=== PATIENT | male | born 1995 | race American Indian/Alaskan Native ===

== ENCOUNTER 2016-05-29 20:45 | Emergency (ER) | payer SELFPAY ==
--- NOTE | 2016-05-29 23:04 | Emergency Department Report ---
ED Recheck HPI - General Chief Complaint: Recheck/Abnormal Lab/Rx Stated Complaint: ASTHMA/RT ARM LAC Time Seen by Provider: 05/29/16 23:04 Source: patient Mode of arrival: Ambulatory Limitations: No Limitations - History of Present Illness Initial Comments: Patient here reported that he has cough and feels like he doesn't have asthma attack and these been out of his asthma medication. Patient has a history of schizophrenia and bipolar and he is not having any mental health problems at this time. Denies any suicidal or homicidal ideation. He said he is just here to get is medication filled. Patient has a wound that is healed and keloid to his right forearm and he came in with a Band-Aid to site. It was mentioned in triage nurse noted that patient has superficial laceration to right forearm but he was wearing a Band-Aid because he said it looks ugly. He denies any pain. Denies any fever or chills. Complaint: medication refill request Returns Today for: request for prescription Symptoms Since Prior Visit: no new symptoms Context: ran out of medication Associated Symptoms: denies: fever, chills, chest pain, shortness of breath, rash, malaise, nasuea, abdominal pain Treatments Prior to Arrival: other (none) - Related Data Previous Rx's Medication Instructions Recorded Last Taken Type ALBUTEROL Inhaler [ProAir HFA 2 puff IH QID PRN #1 inhalation 05/29/16 Unknown Rx Inhaler] Allergies Allergy/AdvReac Type Severity Reaction Status Date / Time No Known Allergies Allergy Verified 10/20/15 21:11 ED Review of Systems ROS: Stated complaint: ASTHMA/RT ARM LAC Other details as noted in HPI Comment: All other systems reviewed and negative Constitutional: denies: chills, fever Eyes: denies: eye pain, vision change ENT: denies: ear pain, throat pain, congestion Respiratory: cough. denies: orthopnea, shortness of breath, SOB with exertion, SOB at rest, stridor, wheezing Cardiovascular: denies: chest pain, palpitations, edema, syncope Musculoskeletal: denies: back pain, arthralgia Neurological: denies: headache, weakness, numbness, paresthesias, confusion, abnormal gait, vertigo Psychiatric: denies: anxiety, depression, auditory hallucinations, visual hallucinations, homicidal thoughts, suicidal thoughts ED Past Medical Hx - Past Medical History Previous Medical History?: Yes Hx Psychiatric Treatment: Yes (Bipolar Type II, Schizophrenia) - Surgical History Past Surgical History?: No - Family History Family history: hypertension - Social History Smoking Status: Never Smoker Substance Use Type: None - Medications Home Medications: Home Medications Medication Instructions Recorded Confirmed Last Taken Type ALBUTEROL Inhaler [ProAir HFA 2 puff IH QID PRN #1 inhalation 05/29/16 Unknown Rx Inhaler] ED Physical Exam - General Limitations: No Limitations General appearance: alert, in no apparent distress - Head Head exam: Present: atraumatic, normocephalic, normal inspection - Eye Eye exam: Present: normal appearance, PERRL, EOMI Pupils: Present: normal accommodation - ENT ENT exam: Present: normal exam, normal orophraynx, mucous membranes moist, TM's normal bilaterally, normal external ear exam - Neck Neck exam: Present: normal inspection, full ROM. Absent: tenderness, meningismus, lymphadenopathy - Respiratory Respiratory exam: Present: normal lung sounds bilaterally - Cardiovascular Cardiovascular Exam: Present: regular rate, normal rhythm, normal heart sounds - Extremities Exam Extremities exam: Present: normal inspection, full ROM, normal capillary refill. Absent: tenderness, pedal edema - Neurological Exam Neurological exam: Present: alert, oriented X3, normal gait - Psychiatric Psychiatric exam: Present: normal affect, normal mood. Absent: depressed, anxious, homicidal ideation, suicidal ideation - Skin Skin exam: Present: warm, dry, intact, normal color, other (scar to Left forearm that is keloid). Absent: rash ED Course Vital Signs 05/29/16 21:19 Temperature 97.5 F L Pulse Rate 100 H Respiratory 20 Rate Blood Pressure 129/68 O2 Sat by Pulse 99 Oximetry - Reevaluation(s) Reevaluation #1: 05/29/16 23:24 Stable throughout ED course ED Recheck MDM - Differential Diagnosis Prescription Refill(s) - Medical Decision Making ED course: here for refills on his albuterol. He is asymptomatic. I discussed the patient that I'll refill his medication times one. He will need to call and schedule an appointment with his primary care physician which she said he does not have one. I will refer patient to [facility]. Discharged home with prescription for albuterol inhaler. Critical care attestation.: If time is entered above; I have spent that time in minutes in the direct care of this critically ill patient, excluding procedure time. ED Disposition Clinical Impression: Encounter for medication refill Disposition: DISCHARGED TO HOME OR SELFCARE Is pt being admited?: No Does the pt Need Aspirin: No Condition: Stable Instructions: Asthma (ED) Prescriptions: ALBUTEROL Inhaler [ProAir HFA Inhaler] 2 puff IH QID PRN #1 inhalation PRN Reason: Shortness Of Breath Referrals: [facility] [Outside] - 3-5 Days Forms: Work/School Release Form(ED)
[2016-05-30 03:01] VITALS: BP 122/74
== END 2016-05-30 00:30 | disposition home or self-care (01) ==
LOC: ED 20:45
DX: Z76.0 Encounter for issue of repeat prescription (principal); F31.81 Bipolar II disorder; F20.9 Schizophrenia, unspecified
CPT/HCPCS: 99281

== ENCOUNTER 2016-07-02 20:49 | Emergency (ER) | payer OTHER ==
[2016-07-02 21:37] LABS: Urine Drugs of Abuse Note Disclamer
[2016-07-02 21:54] LABS: Bilirubin,Urine NEG (Negative); Blood,Urine NEG (Negative); Ketones,Urine NEG (Negative); Leukocyte Esterase,Urine NEG (Negative); Nitrite,Urine NEG (Negative); Protein,Urine <15 mg/dL mg/dL (Negative); Urobilinogen,Urine < 2.0 mg/dL (<2.0)
[2016-07-02 21:58] LABS: WBC,Urine < 1.0 /HPF (0.0-6.0)
[2016-07-02 22:28] LABS: Basophils % (Auto) 0.8 % (0.0-1.8); Eosinophils % (Auto) 1.6 % (0.0-4.3); Hematocrit 43.2 % (35.5-45.6); Hemoglobin 13.7 gm/dl (11.8-15.2); Mean Corpuscular HGB Conc 32 % (32-34); Mean Corpuscular Hemoglobin 27 pg (28-32); Mean Corpuscular Volume 86 fl (84-94); Platelet Count 173 K/mm3 (140-440); Red Blood Count 5.04 M/mm3 (3.65-5.03); Red Cell Distribution Width 13.6 % (13.2-15.2); White Blood Count 7.8 K/mm3 (4.5-11.0)
--- NOTE | 2016-07-02 22:34 | Emergency Department Report ---
ED General Adult HPI - General Chief complaint: Overdose Stated complaint: SUICIDE ATTEMPT Time Seen by Provider: 07/02/16 21:31 Source: patient, EMS (ems notes not available at time of chart dictation. Verbal report received from EMS.), RN notes reviewed Mode of arrival: Stretcher Limitations: No Limitations - History of Present Illness Initial comments: This is a 20-year-old male. He is previously unknown to me. May have a history of psychiatric disease/schizoaffective. Brought to the hospital by EMS for intentional overdose. As per verbal report from EMS, the patient took 45 tablets of Cogentin (2 mg), and 45 tablets of Haldol (5 mg), approximately 1 hour prior to arrival. Denies coingestions. Patient is suicidal. Will not state why. Denies access to guns or firearms. Denies headache, neck pain, chest pain, abdominal pain. -: Sudden, hour(s) Severity scale (0 -10): 0 Consistency: constant Improves with: none Worsens with: none Associated Symptoms: malaise. denies: chest pain - Related Data Home Medications Medication Instructions Recorded Confirmed Last Taken Benztropine 2 mg PO DAILY 07/03/16 07/03/16 Unknown Haldol 15 mg PO HS 07/03/16 07/03/16 Unknown Previous Rx's Medication Instructions Recorded Last Taken Type ALBUTEROL Inhaler [ProAir HFA 2 puff IH QID PRN #1 inhalation 05/29/16 Unknown Rx Inhaler] Allergies Allergy/AdvReac Type Severity Reaction Status Date / Time No Known Allergies Allergy Verified 10/20/15 21:11 ED Review of Systems ROS: Stated complaint: SUICIDE ATTEMPT Other details as noted in HPI Constitutional: see HPI Eyes: as per HPI ENT: as per HPI Respiratory: see HPI Cardiovascular: as per HPI Endocrine: see HPI Gastrointestinal: as per HPI Genitourinary: as per HPI Musculoskeletal: as per HPI Skin: as per HPI Neurological: as per HPI Psychiatric: as per HPI Hematological/Lymphatic: as per HPI ED Past Medical Hx - Past Medical History Hx Psychiatric Treatment: Yes (Bipolar Type II, Schizophrenia) - Surgical History Past Surgical History?: No - Social History Smoking Status: Never Smoker Substance Use Type: Marijuana - Medications Home Medications: Home Medications Medication Instructions Recorded Confirmed Last Taken Type ALBUTEROL Inhaler [ProAir HFA 2 puff IH QID PRN #1 inhalation 05/29/16 07/03/16 Unknown Rx Inhaler] Benztropine 2 mg PO DAILY 07/03/16 07/03/16 Unknown History Haldol 15 mg PO HS 07/03/16 07/03/16 Unknown History ED Physical Exam - General Limitations: No Limitations General appearance: alert, in no apparent distress - Head Head exam: Present: atraumatic, normocephalic - Eye Eye exam: Present: normal appearance, PERRL, EOMI. Absent: nystagmus - ENT ENT exam: Present: normal exam, normal orophraynx, mucous membranes moist, normal external ear exam - Neck Neck exam: Present: normal inspection, full ROM. Absent: tenderness, meningismus - Respiratory Respiratory exam: Present: normal lung sounds bilaterally. Absent: respiratory distress, wheezes, rales, rhonchi, stridor, chest wall tenderness - Cardiovascular Cardiovascular Exam: Present: regular rate, normal rhythm, normal heart sounds. Absent: bradycardia, tachycardia, irregular rhythm, systolic murmur, diastolic murmur, rubs, gallop - GI/Abdominal GI/Abdominal exam: Present: soft, normal bowel sounds. Absent: distended, tenderness, guarding, rebound, rigid, pulsatile mass - Rectal Rectal exam: Present: deferred - Extremities Exam Extremities exam: Present: normal inspection, full ROM, normal capillary refill. Absent: tenderness, pedal edema, joint swelling, calf tenderness - Back Exam Back exam: Present: normal inspection, full ROM. Absent: tenderness, CVA tenderness (R), CVA tenderness (L), muscle spasm, paraspinal tenderness, vertebral tenderness - Neurological Exam Neurological exam: Present: alert, oriented X3, other (Extraocular movements intact. Tongue midline. No facial droop. Facial sensation intact to light touch in the V1, V2, V3 distribution bilaterally. 5 and 5 strength in 4 extremities.. Sensation is intact to light touch in 4 extremities.). Absent: motor sensory deficit - Psychiatric Psychiatric exam: Present: flat affect, suicidal ideation - Skin Skin exam: Present: warm, dry, intact, normal color. Absent: rash ED Course Vital Signs 07/02/16 07/02/16 07/02/16 21:04 22:00 23:00 Temperature 98 F Pulse Rate 97 H 77 80 Respiratory 16 16 16 Rate Blood Pressure 125/81 Blood Pressure 125/81 119/77 124/67 [Left] O2 Sat by Pulse 100 100 100 Oximetry 07/03/16 00:05 Temperature Pulse Rate Respiratory 16 Rate Blood Pressure Blood Pressure [Left] O2 Sat by Pulse 100 Oximetry - Reevaluation(s) Reevaluation #1: 07/02/16 22:42 Differential diagnosis: Polysubstance overdose, suicidality, mood disorder Assessment and plan: 20-year-old male status post overdose and suicide attempt. He is protecting his airway. Presented more than 60 minutes after ingestion. We will withhold charcoal at this time. Has a GCS of 15, with an NIH score of 0. Protecting his airway. 1013 form is filled out. Basic laboratory studies are sent. EKG is reviewed. Case is discussed with the [place] [facility]. They recommended 6-8 hours of observation, maintaining a potassium greater than 4, and a magnesium of greater than 2, and EKG monitoring. Reevaluation #2: 07/03/16 05:07 patient has been observed in the ER for a prolonged period of time. Multiple EKGs have been essentially unremarkable. His most recent EKG show shortening of his QTC. At this point in time, I see no immediate medical contraindication to psychiatric admission/evaluation/placement. 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 ED Medical Decision Making - Lab Data Result diagrams: 07/02/16 22:09 07/02/16 22:09 Vital Signs 07/02/16 21:04 Temperature 98 F Pulse Rate 97 H Respiratory 16 Rate Blood Pressure 125/81 Blood Pressure 125/81 [Left] O2 Sat by Pulse 100 Oximetry Lab Results 07/02/16 07/02/16 Range/Units 21:30 22:09 WBC 7.8 (4.5-11.0) K/mm3 RBC 5.04 H (3.65-5.03) M/mm3 Hgb 13.7 (11.8-15.2) gm/dl Hct 43.2 (35.5-45.6) % MCV 86 (84-94) fl MCH 27 L (28-32) pg MCHC 32 (32-34) % RDW 13.6 (13.2-15.2) % Plt Count 173 (140-440) K/mm3 Lymph % (Auto) 21.4 (13.4-35.0) % [place] % (Auto) 7.2 (0.0-7.3) % Eos % (Auto) 1.6 (0.0-4.3) % Baso % (Auto) 0.8 (0.0-1.8) % Lymph # 1.7 (1.2-5.4) K/mm3 [place] # 0.6 (0.0-0.8) K/mm3 Eos # 0.1 (0.0-0.4) K/mm3 Baso # 0.1 (0.0-0.1) K/mm3 Seg Neutrophils % 69.0 (40.0-70.0) % Seg Neutrophils # 5.4 (1.8-7.7) K/mm3 Urine Color Straw (Yellow) Urine Turbidity Clear (Clear) Urine pH 8.0 H (5.0-7.0) Ur Specific [place] 1.006 (1.003-1.030) Urine Protein <15 mg/dl (Negative) mg/dL Urine Glucose (UA) Neg (Negative) mg/dL Urine Ketones Neg (Negative) mg/dL Urine Blood Neg (Negative) Urine Nitrite Neg (Negative) Urine Bilirubin Neg (Negative) Urine Urobilinogen < 2.0 (<2.0) mg/dL Ur Leukocyte Esterase Neg (Negative) Urine WBC (Auto) < 1.0 (0.0-6.0) /HPF Urine RBC (Auto) 1.0 (0.0-6.0) /HPF - EKG Data 07/02/16 22:43 normal sinus, 93 beats per minute, normal axis, QTC 462 ms, not morphologically consistent with STEMI, appears grossly unchanged from prior EKG from April 2016. EKG #3 demonstrates normal sinus, 68 bpm, QTC 450 ms, early repolarization, no chest pain, not morphologically consistent with STEMI. EKG #2 demonstrated sinus, 76 bpm, QTC 459 ms, benign early repolarization, no chest pain, not morphologically consistent with STEMI 07/03/16 05:08 Critical care attestation.: If time is entered above; I have spent that time in minutes in the direct care of this critically ill patient, excluding procedure time. ED Disposition Clinical Impression: Schizoaffective disorder, Mood disorder, Overdose Disposition: DC/TX PSY HOSP/PSY UNIT Is pt being admited?: No Does the pt Need Aspirin: No Condition: Good Referrals: PRIMARY CARE, [Primary Care Provider] - 3-5 Days
[2016-07-03 00:35] LABS: Anion Gap 21 mmol/L; BUN/Creatinine Ratio 8.75; Blood Urea Nitrogen 7 mg/dL (9-20); Calcium 9.3 mg/dL (8.4-10.2); Carbon Dioxide 25 mmol/L (22-30); Chloride 100.4 mmol/L (98-107); Glucose 106 mg/dL (75-100); Potassium 3.9 mmol/L (3.6-5.0); Sodium 142 mmol/L (137-145)
[2016-07-03] MEDS: HALDOL PO SCH (02:10)
[2016-07-03] MEDS ORDERED: PROAIR IH PRN (05:08)
[2016-07-03] MEDS ORDERED: ATIVAN IM PRN (05:09)
[2016-07-03] MEDS ORDERED: BENZTROPINE 2 MG PO SCH (10:00)
[2016-07-03] MEDS: COGENTIN PO SCH (11:10)
[2016-07-03] MEDS ORDERED: HALOPERIDOL 15 MG PO SCH (22:00)
[2016-07-04] MEDS: COGENTIN PO SCH (10:03)
--- NOTE | 2016-07-04 19:20 | Event Note ---
Date: 07/04/16 Labs and vital signs reviewed. Patient seen, in no acute distress, resting quietly without complaints. Awaiting placement
[2016-07-04] MEDS: HALDOL PO SCH (21:55)
--- NOTE | 2016-07-05 05:51 | Admit Criteria Form ---
Admission Criteria Documentation: DRUG INGESTION OR OVERDOSE Clinical Indications for Admission to Inpatient Care ( Place 'X' for any and all applicable criteria): Admission is indicated for severe toxicity as indicated by ANY ONE of the following(1)(2)(3)(4)(5)(6): [X ]I. Inpatient admission required rather than observation care (Also use Drug Ingestion or Overdose: Observation Care guideline as appropriate) because of ANY ONE of the following: [ ]a) Altered mental status that is severe or persistent [ ]b) Clinical finding (eg, metabolic acidosis, hypoglycemia, bradycardia) that is severe or persistent [ ]c) Toxic drug level that is persistent [X ]d) Psychiatric risk status not acceptable for outpatient management [ ]e) Continuous intravenous infusion of anticoagulation, platelet inhibitor, vasoactive, or antiarrhythmic medication (15)(16) [X ]f) Other condition, treatment or monitoring requiring inpatient admission [ ]II. Respiratory abnormalities [ ]III. Specific finding indicating severe and likely prolonged drug toxicity [ ]IV. Hemodynamic instability [ ]V. Dangerous arrhythmia [ ]. Hypertension requiring inpatient treatment Extended stay beyond goal length of stay may be needed for (4): [ ]a) Neurologic or respiratory compromise [ ]b) Hemodynamic instability [ ]c) Persistent toxic drug levels (25) [ ]d) Severe drug toxicities or complications [ ]e) Ongoing antidote treatment (eg, acetaminophen overdose)(5) [ ]f) Older patients(65 years or older) The original [employer] content created by [employer] has been revised. The portions of the content which have been revised are identified through the use of italic text or in bold, and [facility] has neither reviewed nor approved the modified material. All other unmodified content is copyright [facility]. Please see references footnoted in the original [employer] edition 2016
[2016-07-05] MEDS: COGENTIN PO SCH (09:50)
--- NOTE | 2016-07-05 20:42 | Event Note ---
Date: 07/05/16 Labs and vital signs reviewed. Patient seen, in no acute distress, resting quietly without complaints. Awaiting placement
[2016-07-05] MEDS: HALDOL PO SCH (22:25)
[2016-07-06] MEDS: COGENTIN PO SCH (10:11)
--- NOTE | 2016-07-06 17:41 | Consultation ---
History of Present Illness - Reason for Consult Consult date: 07/06/16 Reason for consult: management of psychiatric condition while awaiting placement - Chief Complaint Chief complaint: I just want to go home - History of Present Psychiatric Illness This is a 20 year old domiciled male with a PPH of Schizophrenia v Bipolar Disorder with Psychosis who now presents after an intentional overdose on risperidone and cogentin. Poison control was called and he had serial EKGs to monitor his QTc with attention of K and Mg levels. OTc on serial EKGs were as follows: 462ms, 459ms, and 450ms. With a down trending QTc and normal K and Mg levels, he was medically cleared after a prolonged observation period. Upon my examination, he was ambulatory and openly requested to be discharged form the ER. Upon discussion, he noted a significant and prolonged history of a depressive syndrome that had recently culminated into command auditory hallucinations to end his life. He noted becoming progressively despondent due to various life stressors and periodic isolation from society due to his symptoms. Consequently, he developed a delusional schema and his psychosis worsened. Although, he initially requested to be discharged he eventually agreed to engage in treatment if we agreed to modify his medication regimen because it has not been effective in helping him to manage his symptoms. During my assessment, he noted periods that resembled manic or hypomanic like which were followed by a depressive episode. Medications and Allergies Allergies Allergy/AdvReac Type Severity Reaction Status Date / Time No Known Allergies Allergy Verified 10/20/15 21:11 Home Medications Medication Instructions Recorded Confirmed Last Taken Type ALBUTEROL Inhaler [ProAir HFA 2 puff IH QID PRN #1 inhalation 05/29/16 07/03/16 Unknown Rx Inhaler] Benztropine 2 mg PO DAILY 07/03/16 07/03/16 Unknown History Haldol 15 mg PO HS 07/03/16 07/03/16 Unknown History Active Meds: Active Medications Albuterol (Proair) 2 puff IH QID PRN PRN Reason: Shortness Of Breath Benztropine Mesylate (Cogentin) 2 mg PO DAILY [facility] Last Admin: 07/06/16 10:11 Dose: 2 mg Haloperidol (Haldol) 15 mg PO QHS [facility] Last Admin: 07/05/16 22:25 Dose: 15 mg Lorazepam (Ativan) 2 mg IM Q4HR PRN PRN Reason: Agitation Mental Status Exam - Vital signs Last Vital Signs Temp 97.6 F 07/06/16 17:05 Pulse 74 07/06/16 17:05 Resp 16 07/06/16 17:05 BP 113/70 07/06/16 17:05 Pulse Ox 98 07/06/16 17:05 - Exam Orientation: time, place, person Affect: depressed, anxious Mood: hopeless, sad, anxious Thought content: delusions, obsessions, paranoia, somatic Perceptions: command, hallucinations Speech: slow Concentration: distractible Motor activity: normal Level of consciousness: alert Memory: Recent Intact, Remote Intact Sleep Symptoms: Hypersomnia Interaction: guarded Results Result Diagrams: 07/02/16 22:09 07/02/16 22:09 All other labs normal. Assessment and Plan Assessment and plan: This is a 20 year old domiciled male with symptoms of psychosis with a differential diagnosis of schizophrenia v bipolar disorder with psychosis who has not responded well to the current medication regimen. Additionally, he has not responded well to zyprexa or risperdione. He has agreed to continue treatment if we modify his medication regimen. Given the severity of his recent overdose, we recommend continuing to place this patient into an emergency receiving facility to address his persistent paranoid delusions and depressive syndrome. At this time, I recommend discontinuing the haloperidol. I also recommend completing a loading depakote dose and adding a standing dose of depakote along with seroquel. We appreciate the opportunity to care for this patient. We will continue to follow and to help manage this patient while he is pending placement.
--- NOTE | 2016-07-07 14:47 | Event Note ---
Date: 07/07/16 Psychiatric consultation reviewed and appreciated. Vital signs reviewed and appreciated. Patient awaiting psychiatric placement at this time. Vital Signs 07/02/16 07/02/16 07/02/16 21:04 22:00 23:00 Temperature 98 F Pulse Rate 97 H 77 80 Respiratory 16 16 16 Rate Blood Pressure 125/81 Blood Pressure 125/81 119/77 124/67 [Left] O2 Sat by Pulse 100 100 100 Oximetry 07/03/16 07/03/16 07/03/16 00:05 00:10 01:00 Temperature Pulse Rate 76 75 Respiratory 16 12 14 Rate Blood Pressure 121/61 Blood Pressure [Left] O2 Sat by Pulse 100 97 97 Oximetry 07/03/16 07/03/16 07/03/16 02:00 03:00 04:00 Temperature Pulse Rate 80 69 69 Respiratory 14 9 L 10 L Rate Blood Pressure 118/52 121/61 121/61 Blood Pressure [Left] O2 Sat by Pulse 98 97 98 Oximetry 07/03/16 07/03/16 07/03/16 05:00 06:00 07:00 Temperature Pulse Rate 72 81 72 Respiratory 12 10 L 11 L Rate Blood Pressure 121/61 121/61 121/61 Blood Pressure [Left] O2 Sat by Pulse 96 99 97 Oximetry 07/03/16 07/03/16 07/04/16 10:00 22:00 04:11 Temperature 98.4 F 98.6 F Pulse Rate 93 H 90 Respiratory 18 18 12 Rate Blood Pressure Blood Pressure 125/67 130/76 [Left] O2 Sat by Pulse 97 98 Oximetry 07/04/16 07/04/16 07/04/16 04:13 09:30 11:05 Temperature 98.7 F 97.5 F L Pulse Rate 78 76 Respiratory 16 16 Rate Blood Pressure Blood Pressure 118/68 [Left] O2 Sat by Pulse 100 100 Oximetry 07/04/16 07/05/16 07/05/16 19:34 07:34 20:46 Temperature 99.2 F 97.8 F 97.1 F L Pulse Rate 99 H 91 H 73 Respiratory 16 18 20 Rate Blood Pressure Blood Pressure 134/77 118/78 112/67 [Left] O2 Sat by Pulse 98 99 99 Oximetry 07/06/16 07/06/16 07/06/16 04:34 10:00 11:00 Temperature 98.3 F Pulse Rate 92 H Respiratory 20 18 18 Rate Blood Pressure Blood Pressure 140/80 [Left] O2 Sat by Pulse 99 99 98 Oximetry 07/06/16 07/07/16 17:05 07:34 Temperature 97.6 F 98.3 F Pulse Rate 74 79 Respiratory 16 18 Rate Blood Pressure Blood Pressure 113/70 118/74 [Left] O2 Sat by Pulse 98 99 Oximetry
--- NOTE | 2016-07-07 16:04 | Progress Note ---
Subjective - Reason for Consult Consult date: 07/07/16 Reason for consult: persistent psychosis and help with placement - Chief Complaint Chief complaint: Patient continues to experience AH and disrupted sleep. He notes some improvement in the organization of his thought process today. He is willing to engage in treatment at a psychiatric hospital. Mental Status Exam - Vital signs Last Vital Signs Temp 98.3 F 07/07/16 07:34 Pulse 79 07/07/16 07:34 Resp 18 07/07/16 07:34 BP 118/74 07/07/16 07:34 Pulse Ox 99 07/07/16 07:34 - Exam Orientation: time Affect: anxious Mood: sad, anxious Thought content: obsessions, paranoia Thought Process: Loose Associations Perceptions: auditory Speech: slow Concentration: distractible Motor activity: restless Level of consciousness: alert Memory: Intact Sleep Symptoms: Difficulty Falling Asleep Interaction: guarded Assessment and Plan This is a 20 year old domiciled male with symptoms of psychosis with a differential diagnosis of schizophrenia v bipolar disorder with psychosis who has not responded well to the current medication regimen. Additionally, he has not responded well to zyprexa or risperdione. He has agreed to continue treatment if we modify his medication regimen. Given the severity of his recent overdose, we recommend continuing to place this patient into an emergency receiving facility to address his persistent paranoid delusions and depressive syndrome. At this time, I recommend discontinuing the haloperidol. I also recommend completing a loading depakote dose and adding a standing dose of depakote along with seroquel. We appreciate the opportunity to care for this patient. We will continue to follow and to help manage this patient while he is pending placement. 07/07: Increase to seroquel 200mg po qhs.
[2016-07-08 07:24] VITALS: BP 95/57
== END 2016-07-08 08:39 ==
LOC: EEVIPCON 20:49 → ED 20:49
DX: T44.3X2A Poisoning by other parasympatholytics [anticholinergics and antimuscarinics] and spasmolytics, intentional self-harm, initial encounter (principal); T43.4X2A Poisoning by butyrophenone and thiothixene neuroleptics, intentional self-harm, initial encounter; F20.9 Schizophrenia, unspecified; F39 Unspecified mood [affective] disorder; F31.81 Bipolar II disorder; F12.10 Cannabis abuse, uncomplicated; Y92.89 Other specified places as the place of occurrence of the external cause
CPT/HCPCS: 36415; 80048; 80307; 81001; 82550; 83735; 85025; 93005; 93010; 99285; G0480; 80320

== ENCOUNTER 2016-12-05 15:19 | Emergency (ER) | payer MEDICAID ==
[2016-12-05 15:33] VITALS: BP 122/72
[2016-12-05] MEDS ORDERED: MOTRIN PO ONE (15:56)
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
[2016-12-05 17:43] LABS: Bilirubin,Urine NEG (Negative); Blood,Urine NEG (Negative); Ketones,Urine NEG (Negative); Leukocyte Esterase,Urine NEG (Negative); Mucus,Urine FEW /HPF; Nitrite,Urine NEG (Negative); Protein,Urine <15 mg/dL mg/dL (Negative); Urobilinogen,Urine < 2.0 mg/dL (<2.0)
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
== END 2016-12-05 17:38 | disposition home or self-care (01) ==
LOC: ED 15:19
DX: M25.551 Pain in right hip (principal); Z18.89 Other specified retained foreign body fragments; G89.29 Other chronic pain; F31.81 Bipolar II disorder; F20.9 Schizophrenia, unspecified; J45.909 Unspecified asthma, uncomplicated; F17.200 Nicotine dependence, unspecified, uncomplicated; F12.90 Cannabis use, unspecified, uncomplicated
CPT/HCPCS: 72170; 81001

== ENCOUNTER 2017-02-17 22:58 | Emergency (ER) | payer MEDICAID ==
[2017-02-18 00:19] LABS: Basophils % (Auto) 0.7 % (0.0-1.8); Eosinophils % (Auto) 3.4 % (0.0-4.3); Hematocrit 41.5 % (35.5-45.6); Hemoglobin 13.4 gm/dl (11.8-15.2); Mean Corpuscular HGB Conc 32 % (32-34); Mean Corpuscular Hemoglobin 27 pg (28-32); Mean Corpuscular Volume 85 fl (84-94); Platelet Count 150 K/mm3 (140-440); White Blood Count 6.6 K/mm3 (4.5-11.0)
[2017-02-18 00:28] LABS: BUN/Creatinine Ratio 8; Blood Urea Nitrogen 7 mg/dL (9-20); Calcium 9.1 mg/dL (8.4-10.2); Carbon Dioxide 29 mmol/L (22-30); Chloride 100.2 mmol/L (98-107); Glucose 95 mg/dL (75-100); Potassium 3.9 mmol/L (3.6-5.0); Sodium 141 mmol/L (137-145)
[2017-02-18 00:32] LABS: Anion Gap 16 mmol/L
[2017-02-18 01:15] LABS: Urine Drugs of Abuse Note Disclamer
[2017-02-18 01:31] LABS: Bilirubin,Urine NEG (Negative); Blood,Urine NEG (Negative); Ketones,Urine NEG (Negative); Leukocyte Esterase,Urine NEG (Negative); Nitrite,Urine NEG (Negative); Protein,Urine <15 mg/dL mg/dL (Negative); Urobilinogen,Urine < 2.0 mg/dL (<2.0)
[2017-02-18 01:38] LABS: WBC,Urine < 1.0 /HPF (0.0-6.0)
[2017-02-18] MEDS ORDERED: ATIVAN IM PRN (06:51)
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
[2017-02-18] MEDS ORDERED: PROAIR IH PRN (06:52)
[2017-02-18] MEDS ORDERED: TYLENOL PO PRN (06:52)
[2017-02-18] MEDS ORDERED: ZOFRAN ODT PO PRN (06:52)
[2017-02-18] MEDS ORDERED: HALDOL IM PRN (06:52)
[2017-02-18 10:56] LABS: Salicylate < 0.3 mg/dL (2.8-20.0); Valproate < 2.8 ug/mL (50-100)
[2017-02-18 13:33] VITALS: BP 127/72
--- NOTE | 2017-02-18 16:28 | Consultation ---
History of Present Illness - Reason for Consult Consult date: 02/18/17 Reason for consult: Mental Health Evaluation Requesting physician: ELEN GARLAND - Chief Complaint Chief complaint: "I was thinking about my life" - History of Present Psychiatric Illness This is a AA 21-year-old male presenting to the [facility] for SI's. Today patient is calm and cooperative during the assessment. He stated that he was sitting around his residence and started thinking about his parents. He stated that he does not have a relationship with them. He stated that he started feeling sad with with suicidal thoughts. He stated that he informed the [facility] staff that he may need to go to the hospital. He stated that he attempted suicide in the past by cutting his wrist. He stated that he does not have a plan currently for suicide. He denies SI/HI's and AVH's. He denies sleep disturbance and a poor appetite. He acknowledged smoking marijuana often, but denies alcohol consumption (etoh). Later in the day, patient was observed completing his ADL' s. Patient stated that he receive the monthly Invega injection. Medications and Allergies Allergies Allergy/AdvReac Type Severity Reaction Status Date / Time No Known Allergies Allergy Verified 07/20/16 13:48 Active Meds: Active Medications Acetaminophen (Tylenol) 650 mg PO Q6HR PRN PRN Reason: Pain Albuterol (Proair) 2 puff IH QID PRN PRN Reason: Shortness Of Breath Haloperidol Lactate (Haldol) 5 mg IM Q6HR PRN PRN Reason: Agitation Lorazepam (Ativan) 2 mg IM Q4HR PRN PRN Reason: Agitation Ondansetron HCl (Zofran Odt) 4 mg PO Q6HR PRN PRN Reason: Nausea Past psychiatric history - Past Medical History Past Medical History: No medical history Past Surgical History: No surgical history - past Psychiatric treatment and history Psych: Bipolar psychiatric treatment history: Patient is seen by [facility] for outpatient psy services. Family psy hx of Bipolar DO. - Social History Social history: other (10th grade education) Mental Status Exam - Vital signs Last Vital Signs Temp 98 F 02/18/17 10:19 Pulse 88 02/18/17 10:19 Resp 18 02/18/17 12:00 BP 127/72 02/18/17 10:19 Pulse Ox 98 02/18/17 12:00 - Exam Narrative exam: MSE: Appearance: calm, cooperative Behavior: regular eye contact Speech: regular rate and tone Mood: "okay" Affect: labile Thought Process: circumstantial Thought Content: denies SI/HI's and AVH's Motor Activity: sitting up in the bed Cognition: A/O x 3unable to assess Insight: variable Judgment: variable Results Result Diagrams: 02/17/17 23:52 02/17/17 23:52 Abnormal lab results 02/17/17 02/17/17 02/18/17 Range/Units 23:52 23:52 07:06 MCH 27 L (28-32) pg [place] % (Auto) 8.4 H (0.0-7.3) % BUN 7 L (9-20) mg/dL Total Creatine Kinase 368 H (55-170) units/L Salicylates (2.8-20.0) mg/dL Valproic Acid (50-100) ug/mL 02/18/17 Range/Units 07:06 MCH (28-32) pg [place] % (Auto) (0.0-7.3) % BUN (9-20) mg/dL Total Creatine Kinase (55-170) units/L Salicylates < 0.3 L (2.8-20.0) mg/dL Valproic Acid < 2.8 L (50-100) ug/mL All other labs normal. Assessment and Plan Assessment and plan: Impression: Historical Dx: Bipolar DO. Unspecified Mood DO. Substance Use DO ( marijuana). Today patient is calm and cooperative during the assessment. Patient positive for marijuana. DDx: R/O MDD, Substance Induced Mood DO Recommendation/Plan: Continue 1013 with placement to inpatient psy services today. Patient receive monthly Invega injection through [facility] ([facility]) .
[2017-02-18 17:25] LABS: Alanine Aminotransferase 11 units/L (7-56); Alkaline Phosphatase 87 units/L (35-129)
== END 2017-02-18 18:22 ==
LOC: ED 22:58
DX: F39 Unspecified mood [affective] disorder (principal); F20.9 Schizophrenia, unspecified; F90.9 Attention-deficit hyperactivity disorder, unspecified type; J45.909 Unspecified asthma, uncomplicated
CPT/HCPCS: 36415; 80048; 80164; 80307; 81001; 82550; 84075; 84450; 84460; 85025; 99285; G0480; 80320

== ENCOUNTER 2018-02-09 23:11 | Emergency (ER) | payer MEDICAID ==
[2018-02-09] MEDS ORDERED: NACL 0.9% 1000 ML 1,000 ML IV ONE (23:55)
[2018-02-10 00:17] LABS: Basophils # (Auto) 0.1 K/mm3 (0.0-0.1); Basophils % (Auto) 0.5 % (0.0-1.8); Eosinophils # (Auto) 0.1 K/mm3 (0.0-0.4); Eosinophils % (Auto) 0.4 % (0.0-4.3); Hematocrit 33.3 % (35.5-45.6); Hemoglobin 10.8 gm/dl (11.8-15.2); Lymphocytes # (Auto) 0.8 K/mm3 (1.2-5.4); Lymphocytes % (Auto) 5.8 % (13.4-35.0); Mean Corpuscular HGB Conc 32 % (32-34); Mean Corpuscular Hemoglobin 27 pg (28-32); Mean Corpuscular Volume 84 fl (84-94); Monocytes % (Auto) 7.4 % (0.0-7.3); Platelet Count 296 K/mm3 (140-440); Red Blood Count 3.97 M/mm3 (3.65-5.03); Red Cell Distribution Width 14.4 % (13.2-15.2)
[2018-02-10 00:24] LABS: Alanine Aminotransferase 11 units/L (7-56); Albumin 4.2 g/dL (3.9-5); BUN/Creatinine Ratio 11; Blood Urea Nitrogen 8 mg/dL (9-20); Calcium 10.1 mg/dL (8.4-10.2); Hemolysis Index 2
[2018-02-10 01:50] LABS: Bacteria,Urine 1+ /HPF (Negative); Bilirubin,Urine NEG (Negative); Blood,Urine NEG (Negative); Color,Urine Yellow (Yellow); Hyaline Casts,Urine 3 /LPF; Protein,Urine <15 mg/dL mg/dL (Negative); Urobilinogen,Urine < 2.0 mg/dL (<2.0)
[2018-02-10 02:10] LABS: RBC,Urine < 1.0 /HPF (0.0-6.0)
[2018-02-10 02:23] VITALS: BP 136/58
[2018-02-10] MEDS ORDERED: TORADOL IV ONE (03:01)
[2018-02-10] MEDS ORDERED: ZOFRAN IV ONE (03:01)
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
== END 2018-02-10 05:42 | disposition home or self-care (01) ==
LOC: ED 23:11
DX: K52.9 Noninfective gastroenteritis and colitis, unspecified (principal); F31.81 Bipolar II disorder; F20.9 Schizophrenia, unspecified; F90.9 Attention-deficit hyperactivity disorder, unspecified type; J45.909 Unspecified asthma, uncomplicated; F17.200 Nicotine dependence, unspecified, uncomplicated
CPT/HCPCS: 36415; 74177; 80053; 81001; 85025; 96374; 96375; 99284; J1885; J2405; J7030; Q9967

== ENCOUNTER 2018-09-21 15:13 | Inpatient (IN) | payer MEDICAID ==
--- NOTE | 2018-09-21 16:32 | Emergency Department Report ---
Blank Doc - Documentation Documentation: 23 y o male presents to the ED cc of swollen face, abd and back pain was admitted n at [facility] about a month ago went to f/u worsening facial swollen, back and abd pain labs ordered,ua ordered ct ordered Main side
[2018-09-21 17:24] LABS: INR 0.86 (0.87-1.13)
[2018-09-21 17:30] LABS: Hemoglobin 13.9 gm/dl (11.8-15.2); Mean Corpuscular HGB Conc 32 % (32-34); Mean Corpuscular Volume 82 fl (84-94); Red Blood Count 5.22 M/mm3 (3.65-5.03); Red Cell Distribution Width 16.4 % (13.2-15.2)
[2018-09-21 17:34] LABS: Alanine Aminotransferase 44 units/L (7-56); Albumin 0.8 g/dL (3.9-5); Bilirubin,Direct < 0.2 mg/dL (0-0.2)
[2018-09-21 18:16] LABS: Basophils % (Manual) 0 % (0.0-1.8); Eosinophils % (Manual) 0 % (0.0-4.3); Total Cells Counted 100
[2018-09-21 18:17] LABS: Platelet Count 60 K/mm3 (140-440); RBC Morphology Normal
--- NOTE | 2018-09-21 19:13 | Cat Scan Report ---
PROCEDURE: CT ABDOMEN PELVIS WO CON TECHNIQUE: Computerized axial tomography of the abdomen and pelvis was performed without intravenous contrast. This study is performed without intravascular contrast material and its sensitivity for ab dominal and pelvic pathology, including neoplasms, inflammation, abscess, free fluid, thrombosis, art erial dissection and infarction, is reduced compared with a contrast enhanced study. CT DOSE LENGTH PRODUCT: 1207 mGycm HISTORY: Abdominal Pain COMPARISONS: 02/10/2018 . FINDINGS: Visualized lower thorax: Bilateral layering pleural effusions, right greater than left. Liver: Liver measures 18 cm craniocaudal. Spleen: Spleen is mildly prominent. Probable splenule at the splenic hilum measuring 16 mm Gallbladder and biliary system: Gallbladder is present. Pancreas: Normal. Adrenals: Normal. Kidneys: Normal. GI tract: Normal . Lymph nodes and mesentery: There is diffuse mesenteric adenopathy, with increased size of the mesente kristen lymph nodes compared to the prior study. Mesenteric nodes have a rounded appearance and measure u p to 1 cm in short axis. There is also new bilateral inguinal adenopathy, with lymph nodes measuring up to 19 mm in short axis. Vasculature: Normal.. Bladder: Normal. Reproductive organs: Normal. Peritoneum: There is a large volume of free fluid throughout the abdomen and pelvis. Musculoskeletal structures: There is hardware in the left femur.. Other: Numerous metallic foreign bodies are seen in the right gluteal region and right pelvis. IMPRESSION: Diffuse new mesenteric and inguinal adenopathy with new free intraperitoneal fluid and pleural effusi ons. Recommend further evaluation for possible malignant process . Findings were discussed with JANETTE Monge by telephone at 6:09 PM central standard time on 09/21/2018 This document is electronically signed by Vidya Basurto MD., Sep 21 2018 07:12:04 PM ET
[2018-09-21] MEDS ORDERED: NACL 0.9% 1000 ML 1,000 ML IV ONE (19:35)
[2018-09-21 20:02] LABS: BUN/Creatinine Ratio 9; Blood Urea Nitrogen 8 mg/dL (9-20); Calcium 6.8 mg/dL (8.4-10.2); Hemolysis Index 32
[2018-09-21 21:01] LABS: Bilirubin,Urine NEG (Negative); Blood,Urine NEG (Negative); Color,Urine Yellow (Yellow); Hyaline Casts,Urine 15 /LPF; Mucus,Urine FEW /HPF; Protein,Urine >500 mg/dL (Negative); Urobilinogen,Urine < 2.0 mg/dL (<2.0)
--- NOTE | 2018-09-21 21:10 | Cat Scan Report ---
PROCEDURE: CT ANGIO CHEST TECHNIQUE: Computerized tomographic angiography of the chest was performed after the IV injection of iodinated nonionic contrast including image processing. The image data was postprocessed using 2-di mensional multiplanar reformatted (MPR) and 3-dimensional (MIP and/or volume rendered) techniques. Au tomated exposure control, adjustment of mA and/or kV according to patient size, or iterative reconstr uction dose optimization techniques were utilized. CT DOSE LENGTH PRODUCT: 496.9 mGycm HISTORY: chest pain tachycardia COMPARISONS: None . FINDINGS: Aorta is of normal caliber and outlines without evidence of any dissection. There are no obvious pulm onary arterial filling defects. Visualized thyroid demonstrates normal density. Multiple nonenlarged lymph nodes are noted in bilateral axillary regions. There is mild degree bilateral hilar lymphadenop athy. Moderate degree right-sided and mild degree left-sided pleural effusions are identified. There are no areas of consolidation. No mass lesions are identified. There is moderate degree of ascites. T here is evidence of mesenteric, para-aortic pericaval and celiac lymphadenopathy. Vertebral height is normal. IMPRESSION: Bilateral pleural effusions Bilateral hilar lymphadenopathy Nonenlarged bilateral axillary lymph nodes Periaortic, precaval, mesenteric and celiac lymphadenopathy. Ascites. This document is electronically signed by Justo Armenta MD., Sep 21 2018 09:08:29 PM ET
[2018-09-21] MEDS ORDERED: ZOFRAN IV ONE (21:30)
[2018-09-21] MEDS ORDERED: ZOFRAN ONE (21:34)
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
[2018-09-21 22:08] LABS: INR 0.92 (0.87-1.13)
[2018-09-21 22:09] LABS: Partial Thromboplastin Time 33.6 Sec. (24.2-36.6)
--- NOTE | 2018-09-21 22:34 | History and Physical Report ---
History of Present Illness Date of examination: 09/21/18 History of present illness: 23-year-old male a history of bipolar, schizophrenia, ADHD sent to the emergency room for evaluation by Dr. Goins. Patient complaining of abdominal pain she describes as sharp, intermittent, lasting for minutes to hours, intensity 5/10, radiation, can identify exacerbating or relieving factors. States that his urine has been dark, frothy, admits to weight gain. He was admitted at [facility] for similar symptoms. He stated that he had acute renal failure, was treated. He also had a bone marrow biopsy done for evaluation of thrombocytopenia, shows mildly hypocellular bone marrow, adequate megakaryocytes, absent stainable iron. There was reversal of the CD4 CD8 ratio and nonspecific myeloid abnormalities Review of systems Constitutional: no weight loss, chills, fever Ears, eyes, nose, mouth and throat: no nasal congestion, no nasal discharge, no sinus pressure, no vision change, no red eye. Neck: No neck pain or rigidity. Cardiovascular: no palpitations, chest pain Respiratory: no cough, shortness of breath Gastrointestinal: no hematochezia, abdominal pain Genitourinary : no frequency , no hematuria Musculoskeletal: no joint swelling or muscle ache Integumentary: no rash, no pruritis Neurological: no parathesias, no focal weakness Endocrine: no cold or heat intolerance, no polyuria or polydipsia Hematologic/Lymphatic: no easy bruising, no easy bleeding, no gland swelling Allergic/Immunologic: no urticaria, no angioedema. PAST MEDICAL HISTORY:bipolar, schizophrenia, ADHD PAST SURGICAL HISTORY: Left leg and arm SOCIAL HISTORY: +alcohol, 7 cigarettes a day, marijuana, amphetamine, chronic cocaine use FAMILY HISTORY: Hypertension Medications and Allergies Allergies Allergy/AdvReac Type Severity Reaction Status Date / Time No Known Allergies Allergy Verified 09/21/18 15:17 Home Medications Medication Instructions Recorded Confirmed Last Taken Type Lisinopril [Zestril TAB] 10 mg PO QDAY #30 tablet 09/26/18 Unknown Rx predniSONE [Deltasone] 2 tab PO DAILY #20 tablet 09/26/18 Unknown Rx Exam - Physical Exam Narrative exam: General Apperance: The patient lying in bed, breathing comfortable HEENT: Normocephalic, atraumatic. Pupils equally round and reactive to light, EOMI, no sclericterus or JVD or thyromegaly or nodule. , no carotid bruit, mucous membranes moist, no exudate or erythema Heart: S1-S2, regular is rhythm Lungs: Decreased breath sounds at bases bilaterally, breathing comfortable Abdomen: Positive fluid wave, bowel sounds, soft, nontender, nondistended, no organomegaly Extremities: No edema cyanosis clubbing Skin: no rash, nodule, warm and dry Neuro: cranial nerves 2-12 intact, speech is fluent, motor/sensory intact - Constitutional Vitals: Temp Pulse Resp BP Pulse Ox 98.6 F 105 H 18 140/91 98 09/21/18 19:30 09/21/18 19:30 09/21/18 19:30 09/21/18 19:30 09/21/18 19:30 Results - Labs CBC & Chem 7: 09/26/18 06:07 09/25/18 08:32 Labs: Abnormal lab results 09/21/18 09/21/18 09/21/18 Range/Units 16:41 16:41 16:41 RBC 5.22 H (3.65-5.03) M/mm3 MCV 82 L (84-94) fl MCH 27 L (28-32) pg RDW 16.4 H (13.2-15.2) % Plt Count 60 L (140-440) K/mm3 Seg Neuts % (Manual) 37.0 L (40.0-70.0) % Lymphocytes % (Manual) 49.0 H (13.4-35.0) % Monocytes % (Manual) 14.0 H (0.0-7.3) % INR 0.86 L (0.87-1.13) Chloride (98-107) mmol/L BUN (9-20) mg/dL Glucose (75-100) mg/dL Calcium (8.4-10.2) mg/dL AST 71 H (5-40) units/L Alkaline Phosphatase 183 H (35-129) units/L Total Protein 4.5 L (6.3-8.2) g/dL Albumin 0.8 L (3.9-5) g/dL Urine WBC (Auto) (0.0-6.0) /HPF 09/21/18 09/21/18 Range/Units 16:41 20:49 RBC (3.65-5.03) M/mm3 MCV (84-94) fl MCH (28-32) pg RDW (13.2-15.2) % Plt Count (140-440) K/mm3 Seg Neuts % (Manual) (40.0-70.0) % Lymphocytes % (Manual) (13.4-35.0) % Monocytes % (Manual) (0.0-7.3) % INR (0.87-1.13) Chloride 110.8 H (98-107) mmol/L BUN 8 L (9-20) mg/dL Glucose 73 L (75-100) mg/dL Calcium 6.8 L (8.4-10.2) mg/dL AST (5-40) units/L Alkaline Phosphatase (35-129) units/L Total Protein (6.3-8.2) g/dL Albumin (3.9-5) g/dL Urine WBC (Auto) 9.0 H (0.0-6.0) /HPF - Imaging and Cardiology CT scan - abdomen: report reviewed CT scan - chest: report reviewed CT scan - pelvis: report reviewed Assessment and Plan Assessment Ascites Lymphadenopathy Thrombocytopenia UTI Bilateral pleural effusion bipolar schizophrenia ADHD Plan I have requested the records from [facility] Consider analysis of ascites if not done at [facility] Consult oncology, DVT prophylaxis Start levaquin
[2018-09-21] MEDS ORDERED: TYLENOL PO PRN (22:58)
[2018-09-21] MEDS ORDERED: SODIUM CHLORIDE FLUSH SYRINGE 10 ML IV PRN (22:58)
[2018-09-22] MEDS: LASIX IV SCH (06:28)
[2018-09-22] MEDS: LEVAQUIN PO SCH (06:29)
[2018-09-22 08:34] LABS: Hematocrit 41.1 % (35.5-45.6); Hemoglobin 13.4 gm/dl (11.8-15.2); Mean Corpuscular HGB Conc 33 % (32-34); Mean Corpuscular Volume 82 fl (84-94); Red Blood Count 5.03 M/mm3 (3.65-5.03); Red Cell Distribution Width 15.5 % (13.2-15.2)
[2018-09-22 08:59] LABS: BUN/Creatinine Ratio 12; Blood Urea Nitrogen 7 mg/dL (9-20); Calcium 6.6 mg/dL (8.4-10.2); Hemolysis Index 40
--- NOTE | 2018-09-22 09:00 | Consultation ---
History of Present Illness - Reason for Consult Consult date: 09/22/18 proteinuria - History of Present Illness The patient is a 23 Yo male with hx significant for Bipolar disorder, Schizophrenia and and Thrombocytopenia who was sent by Dr. Pressley for evaluation of tachycardia, chest pain, back pain and abdominal pain. Patient reports having pain intermittently for the past several months. Recently he was treated for JOSE and Nephrotic syndrome at [facility]. Workup including Hepatitis panel, HIV and LUBA were negative. Renal biopsy was recommended but not performed. He was evaluated for thrombocytopenia and had bone marrow biopsy. Patient had few episodes of vomiting yesterday. He denies any sob, cough, hemoptysis, dysuria, hematuria, dizziness or syncope. Nephrology was consulted for further evaluation. Past History Past Medical History: other (Schizophrenia, BIpolar, Thrombocytopenia) Medications and Allergies Allergies Allergy/AdvReac Type Severity Reaction Status Date / Time No Known Allergies Allergy Verified 09/21/18 15:17 Home Medications Medication Instructions Recorded Confirmed Last Taken Type Dicyclomine [Bentyl] 20 mg PO QID PRN #20 tablet 02/10/18 09/22/18 Unknown Rx Promethazine [Phenergan TAB] 25 mg PO Q6HR PRN #20 tab 02/10/18 09/22/18 Unknown Rx traMADol [Ultram] 50 mg PO Q6HR PRN #20 tablet 04/23/18 09/22/18 Unknown Rx Guaifenesin/Pseudoephedrne HCl 1 each PO BID PRN #20 tab.er.12h 04/24/18 09/22/18 Unknown Rx [Mucinex D ER 600-60 mg Tablet] Ibuprofen 800 mg PO TID PRN #30 tablet 04/24/18 09/22/18 Unknown Rx Active Meds: Active Medications Acetaminophen (Tylenol) 650 mg PO Q4H PRN PRN Reason: Pain MILD(1-3)/Fever >100.5/[place] Furosemide (Lasix) 20 mg IV QDAY@0600 [facility] Last Admin: 09/22/18 06:28 Dose: 20 mg Documented by: Levofloxacin (Levaquin) 500 mg PO Q24H [facility] Last Admin: 09/22/18 06:29 Dose: 500 mg Documented by: Morphine Sulfate (Morphine) 2 mg IV Q4H PRN PRN Reason: Pain, Moderate (4-6) Ondansetron HCl (Zofran) 4 mg IV Q4H PRN PRN Reason: Nausea And Vomiting Sodium Chloride (Sodium Chloride Flush Syringe 10 Ml) 10 ml IV BID BRADEN Sodium Chloride (Sodium Chloride Flush Syringe 10 Ml) 10 ml IV PRN PRN PRN Reason: LINE FLUSH Review of Systems Constitutional: no weight loss, no weight gain, no fever, no chills, no anorexia Cardiovascular: chest pain, edema, no orthopnea, no syncope, no lightheadedness, no shortness of breath, no high blood pressure, no leg edema Respiratory: no cough, no hemoptysis, no shortness of breath, no dyspnea on exertion Gastrointestinal: abdominal pain, nausea, vomiting, no diarrhea, no hematemesis, no melena, no hematochezia Genitourinary Male: no dysuria, no hematuria Rectal: no bleeding Musculoskeletal: myalgias Integumentary: no rash, no sores, no wounds, no jaundice Neurological: no paralysis, no weakness, no syncope, no aphasia, no change in speech, no change in mentation, no confusion Exam - Vital Signs Vital signs: Vital Signs Temp Pulse Resp BP Pulse Ox 97.4 F L 133 H 13 135/78 99 09/21/18 16:27 09/21/18 16:27 09/21/18 16:27 09/21/18 16:27 09/21/18 16:27 - General Appearance General appearance: well-developed, well-nourished, appears stated age EENT: ATNC, PERRL, other (facial plethora noted) Neck: Present: neck supple, trachea midline Respiratory: Clear to Ascultation Heart: regular, S1S2, no murmurs Gastrointestinal: Present: normoactive bowel sounds. Absent: tenderness, distended Integumentary: no rash, warm and dry Neurologic: no focal deficit, no asterixis, alert and oriented x3 Musculoskeletal: Present: other (no ext edema) Results - Lab Results 09/22/18 08:12 09/22/18 08:12 Most recent lab results Calcium 6.8 mg/dL (8.4-10.2) L 09/21/18 16:41 Assessment and Plan 1. Nephrotic syndrome: Possible diagnoses includes FSGS and Minimal change. Unlikely immune mediated GN. Patient agreed for Kidney biopsy. Will wait for platelet count to get better. Started on Lisinopril. 2. Thrombocytopenia: Followed by Heme-Onc. 3. Lymphadenopathy: S/p needle biopsy. 4. B/l pleural effusion and Ascites: Likely due to Nephrotic syndrome. 5. Schizophrenia.
[2018-09-22] MEDS: MORPHINE IV PRN ×2 (09:14→20:15)
[2018-09-22] MEDS: SODIUM CHLORIDE FLUSH SYRINGE 10 ML IV SCH ×2 (09:15→21:48)
[2018-09-22] MEDS: ZESTRIL PO SCH (12:29)
[2018-09-22 13:27] LABS: Total Cells Counted 100
[2018-09-22 13:28] LABS: Band Neutrophils # (Manual) 0.1 K/mm3; Basophils % (Manual) 0 % (0.0-1.8); Eosinophils % (Manual) 0 % (0.0-4.3); Platelet Count 40 K/mm3 (140-440); Platelet Estimate Consistent w Auto; RBC Morphology Normal
--- NOTE | 2018-09-22 15:12 | Post Operative Note ---
Date of procedure: 09/22/18 Pre-op diagnosis: Inguinal lymphadenopathy, ascites, nephrotic syndrome Post-op diagnosis: same Procedure: BX of right inguinal lymph node, two 14 gauge cores, sent per pathology instructions Anesthesia: local Surgeon: CLEM MAGALLANES Estimated blood loss: minimal Condition: stable Disposition: floor
--- NOTE | 2018-09-22 15:19 | Event Note ---
Date: 09/22/18 23-year-old male presenting with ascites, thrombocytopenia, lymphadenopathy, nephrotic syndrome, who previously has been admitted to the hospital at [facility] for similar complaints. The inguinal lymph nodes can be biopsied due to the compressible location, and have been biopsied today. The kidneys are not compressible and with the thrombocytopenia, bleeding is a high risk. Discussed with Dr. Benitez who agrees. Plan for biopsy, possibly as outpatient, once thrombocytopenia has resolved.
--- NOTE | 2018-09-22 15:37 | Progress Note ---
Assessment and Plan Ascites due to proteinurea ? Lymphadenopathy Thrombocytopenia UTI Bilateral pleural effusion bipolar disorder schizophrenia ADHD Plan Requested [place] [facility] levaquin Resume home meds IR consulted for ascites and possible biopsy - BX of right inguinal lymph node No renal biopsy done for thrombocytopenia Consulted oncology, DVT prophylaxis with SCD Brief History: The patient is a 23 Yo male with hx significant for Bipolar disorder, Schizophrenia and and Thrombocytopenia who was sent by Dr. Pressley for evaluation of tachycardia, chest pain, back pain and abdominal pain. Recently he was treated for JOSE and Nephrotic syndrome at [facility]. Workup included Hepatitis panel, HIV and LUBA were negative. He was evaluated for thrombocytopenia and had bone marrow biopsy. Patient had few episodes of vomiting yesterday. Urine positive for significant proteinurea. IR consulted for possible biopsy. Subjective Date of service: 09/22/18 Interval history: Patient seen and examined c/o dark urine, poor appetite, N/V Objective - Exam Narrative Exam: General Apperance: The patient lying in bed, breathing comfortable HEENT: Normocephalic, atraumatic. Pupils equally round and reactive to light, EOMI, no sclericterus or JVD or thyromegaly or nodule. , no carotid bruit, mucous membranes moist, no exudate or erythema Heart: S1-S2, regular is rhythm Lungs: Decreased breath sounds at bases bilaterally, breathing comfortable Abdomen: Positive fluid wave, bowel sounds, soft, nontender, nondistended, no organomegaly Extremities: No edema cyanosis clubbing Skin: no rash, nodule, warm and dry Neuro: cranial nerves 2-12 intact, speech is fluent, motor/sensory intact - Constitutional Vitals: Vital Signs - 12hr 09/22/18 05:20 Temperature 98.0 F Pulse Rate 88 Respiratory 18 Rate Blood Pressure 124/82 O2 Sat by Pulse 96 Oximetry - Labs CBC & Chem 7: 09/22/18 08:12 09/22/18 08:12 Labs: Abnormal lab results 09/21/18 09/21/18 09/21/18 Range/Units 16:41 16:41 16:41 RBC 5.22 H (3.65-5.03) M/mm3 MCV 82 L (84-94) fl MCH 27 L (28-32) pg RDW 16.4 H (13.2-15.2) % Plt Count 60 L (140-440) K/mm3 Seg Neuts % (Manual) 37.0 L (40.0-70.0) % Lymphocytes % (Manual) 49.0 H (13.4-35.0) % Monocytes % (Manual) 14.0 H (0.0-7.3) % Seg Neutrophils # Man (1.8-7.7) K/mm3 INR 0.86 L (0.87-1.13) Chloride (98-107) mmol/L BUN (9-20) mg/dL Creatinine (0.8-1.5) mg/dL Glucose (75-100) mg/dL Calcium (8.4-10.2) mg/dL AST 71 H (5-40) units/L Alkaline Phosphatase 183 H (35-129) units/L Total Protein 4.5 L (6.3-8.2) g/dL Albumin 0.8 L (3.9-5) g/dL Urine WBC (Auto) (0.0-6.0) /HPF 09/21/18 09/21/18 09/22/18 Range/Units 16:41 20:49 08:12 RBC (3.65-5.03) M/mm3 MCV 82 L (84-94) fl MCH 27 L (28-32) pg RDW 15.5 H (13.2-15.2) % Plt Count 40 L (140-440) K/mm3 Seg Neuts % (Manual) 15.0 L (40.0-70.0) % Lymphocytes % (Manual) 67.0 H (13.4-35.0) % Monocytes % (Manual) 14.0 H (0.0-7.3) % Seg Neutrophils # Man 0.7 L (1.8-7.7) K/mm3 INR (0.87-1.13) Chloride 110.8 H (98-107) mmol/L BUN 8 L (9-20) mg/dL Creatinine (0.8-1.5) mg/dL Glucose 73 L (75-100) mg/dL Calcium 6.8 L (8.4-10.2) mg/dL AST (5-40) units/L Alkaline Phosphatase (35-129) units/L Total Protein (6.3-8.2) g/dL Albumin (3.9-5) g/dL Urine WBC (Auto) 9.0 H (0.0-6.0) /HPF 09/22/18 Range/Units 08:12 RBC (3.65-5.03) M/mm3 MCV (84-94) fl MCH (28-32) pg RDW (13.2-15.2) % Plt Count (140-440) K/mm3 Seg Neuts % (Manual) (40.0-70.0) % Lymphocytes % (Manual) (13.4-35.0) % Monocytes % (Manual) (0.0-7.3) % Seg Neutrophils # Man (1.8-7.7) K/mm3 INR (0.87-1.13) Chloride 111.4 H (98-107) mmol/L BUN 7 L (9-20) mg/dL Creatinine 0.6 L (0.8-1.5) mg/dL Glucose (75-100) mg/dL Calcium 6.6 L (8.4-10.2) mg/dL AST (5-40) units/L Alkaline Phosphatase (35-129) units/L Total Protein (6.3-8.2) g/dL Albumin (3.9-5) g/dL Urine WBC (Auto) (0.0-6.0) /HPF
--- NOTE | 2018-09-22 19:24 | Ultrasound Report ---
PROCEDURE: US ABDOMEN LIMITED HISTORY: ascitis FINDINGS: Real-time four-quadrant ultrasound of the abdomen was performed. There is a small amount of ascites, which was not measured. IMPRESSION: Small amount of ascites This document is electronically signed by Gigi Marie MD., Sep 22 2018 07:22:54 PM ET
--- NOTE | 2018-09-22 22:52 | Event Note ---
Date: 09/22/18 [id number]
--- NOTE | 2018-09-23 04:21 | Consultation ---
REFERRED BY: Dr. Zepeda. REASON FOR CONSULTATION: Thrombocytopenia. HISTORY OF PRESENT ILLNESS: I saw the patient, a 23-year-old male on the medical floor. The patient has a history of bipolar, schizophrenia, ADHD. The patient has been on Invega injections monthly as a Depo preparation for his psychiatric issues. He was admitted in 08/2018 at [facility]. At one time, the creatinine was 5. He also had facial swelling. The patient was seen by the embossing machine operator and investigations were done. Kidney biopsy was planned, but as the platelets were low, it was not done. Later creatinine improved. The patient underwent a bone marrow biopsy, which did not show any neoplastic process. The patient came to the clinic for followup and the psychiatrist had made the comment regarding restarting the Invega injections. As he has been having facial swelling and also he was tachycardic, he was sent to the hospital. In the hospital, he was found to have lymphadenopathy, pleural effusion, ascites, tachycardia, and low platelets. I have been asked to evaluate the patient for same. At this time, no headache, no visual disturbances. No ear discharge, no chest pain. History of palpitations present. No abdominal pain, no vomiting, no diarrhea, no dysuria. PAST MEDICAL HISTORY: The patient has facial swelling. ALLERGIES: None. HOME MEDICATIONS: Include Bentyl, Phenergan, Ultram, ibuprofen, guaifenesin. SOCIAL HISTORY: History of alcohol present, history of cigarette use is present. In the clinic, the patient was accompanied by the caregiver. MEDICAL HISTORY: As above. SURGICAL HISTORY: Left leg and arm surgery. FAMILY HISTORY: Hypertension. PHYSICAL EXAMINATION: VITAL SIGNS: Temperature 97, pulse 100, respirations 16, BP 129/83. HEENT: No pallor, no icterus. Facial puffiness present. NECK: No neck lymph nodes. HEART: S1, S2. LUNGS: Decreased air entry. ABDOMEN: Soft. EXTREMITIES: No calf tenderness. NEUROLOGIC: Alert, awake, oriented. LABORATORY DATA: White cell 4, hemoglobin 13, MCV 82, platelets were 16 and then 40. PT, PTT normal. Potassium 3.9. Creatinine 0.6, bilirubin 0.2, AST 71. Total protein 4.5. UA, protein more than 500. ASSESSMENT: 1. Thrombocytopenia. In 10/2017, the patient's platelets were normal. This may be an immune phenomena. An investigation for deficiency workup and bone marrow biopsy was done at [facility], adequate ____ were present. 2. There is an option of a steroid trial, however, as the platelets are more than 50, none was done. Also, it appears he is having an immune phenomenon in the kidneys. I discussed with the embossing machine operator regarding the option of a steroid trial versus waiting for a biopsy. For biopsy, the patient would need a platelet transfusion. 3. Facial swelling, likely secondary to proteinuria. Nephrology following. At one time in the past, creatinine was 5, now it is improved. 4. Psychiatric issues. The patient is on monthly Invega injections. This causes a low white cell count, but not much to the platelets. 5. [facility] 6. Abnormal LFTs. 7. Lymphadenopathy based on CT scan. IR consultation to see if lymphatic disorder is causing renal issues and low platelets as a ____ phenomena. 8. We will follow the platelet count and revisit the issue of a steroid trial with the understanding that the renal biopsy may be affected. JOB# [id number] NM/NTS
[2018-09-23] MEDS: LASIX IV SCH (05:31)
[2018-09-23] MEDS: LEVAQUIN PO SCH (05:31)
[2018-09-23 08:05] LABS: Hematocrit 42.2 % (35.5-45.6); Hemoglobin 13.9 gm/dl (11.8-15.2); Mean Corpuscular HGB Conc 33 % (32-34); Mean Corpuscular Volume 82 fl (84-94); Red Blood Count 5.16 M/mm3 (3.65-5.03)
[2018-09-23 08:22] LABS: BUN/Creatinine Ratio 7; Blood Urea Nitrogen 5 mg/dL (9-20); Calcium 6.8 mg/dL (8.4-10.2); Hemolysis Index 58
--- NOTE | 2018-09-23 09:39 | Progress Note ---
Assessment and Plan 1. Nephrotic syndrome: Possible diagnoses includes FSGS and Minimal change. Unlikely immune mediated GN. Patient agreed for Kidney biopsy. Will wait for platelet count to get better. Continue Lisinopril. 2. Thrombocytopenia: Followed by Heme-Onc. 3. Lymphadenopathy: S/p needle biopsy. 4. B/l pleural effusion and Ascites: Likely due to Nephrotic syndrome. 5. Schizophrenia. Subjective Date of service: 09/23/18 Interval history: Patient was seen and examined at the bedside. Doing ok. Objective - Vital Signs Vital signs: Vital Signs - 12hr 09/22/18 09/23/18 23:03 05:32 Temperature 98.5 F 98.6 F Pulse Rate 95 H Respiratory 20 16 Rate Blood Pressure 125/77 133/87 O2 Sat by Pulse 99 Oximetry - General Appearance General appearance: well-developed, well-nourished, appears stated age, other (not in distress) EENT: ATNC, PERRL, hearing intact, vision intact Neck: supple Respiratory: Present: Clear to Ascultation Cardiology: regular, S1S2, no murmurs Gastrointestinal: normoactive bowel sounds, no tenderness Integumentary: no rash, warm and dry Neurologic: no focal deficit, no asterixis, alert and oriented x3 Musculoskeletal: other (no edema) - Lab 09/25/18 08:32 09/25/18 08:32 Most recent lab results Calcium 6.8 mg/dL (8.4-10.2) L 09/23/18 07:23 Medications & Allergies - Medications Allergies/Adverse Reactions: Allergies No Known Allergies Allergy (Verified 09/21/18 15:17) Home Medications: Home Medications Medication Instructions Recorded Confirmed Last Taken Type Dicyclomine [Bentyl] 20 mg PO QID PRN #20 tablet 02/10/18 09/22/18 Unknown Rx Promethazine [Phenergan TAB] 25 mg PO Q6HR PRN #20 tab 02/10/18 09/22/18 Unknown Rx traMADol [Ultram] 50 mg PO Q6HR PRN #20 tablet 04/23/18 09/22/18 Unknown Rx Guaifenesin/Pseudoephedrne HCl 1 each PO BID PRN #20 tab.er.12h 04/24/18 09/22/18 Unknown Rx [Mucinex D ER 600-60 mg Tablet] Ibuprofen 800 mg PO TID PRN #30 tablet 04/24/18 09/22/18 Unknown Rx Active Medications: Generic Name Dose Route Start Last Admin Trade Name Freq PRN Reason Stop Dose Admin Acetaminophen 650 mg 09/21/18 22:58 Tylenol PO Q4H PRN Pain MILD(1-3)/Fever >100.5/CORDON Furosemide 20 mg 09/22/18 06:00 09/23/18 05:31 Lasix IV 20 mg QDAY@0600 BRADEN Administration Levofloxacin 500 mg 09/22/18 06:00 09/23/18 05:31 Levaquin PO 500 mg Q24H BRADEN Administration Lisinopril 10 mg 09/22/18 10:00 09/22/18 12:29 Zestril PO 10 mg QDAY BRADNE Administration Morphine Sulfate 2 mg 09/21/18 22:58 09/22/18 20:15 Morphine IV 2 mg Q4H PRN Administration Pain, Moderate (4-6) Ondansetron HCl 4 mg 09/21/18 22:58 Zofran IV Q4H PRN Nausea And Vomiting Sodium Chloride 10 ml 09/22/18 10:00 09/22/18 21:48 Sodium Chloride Flush Syringe 10 Ml IV 10 ml BID BRADEN Administration Sodium Chloride 10 ml 09/21/18 22:58 Sodium Chloride Flush Syringe 10 Ml IV PRN PRN LINE FLUSH
--- NOTE | 2018-09-23 10:43 | Hem/Onc Progress Note ---
Assessment and Plan 1. Thrombocytopenia. In 10/2017, the patient's platelets were normal. This may be an immune phenomena. An investigation for deficiency workup and bone marrow biopsy was done at [facility], adequate megakaryocytes were present. 2. There is an option of a steroid trial, however, as the platelets are more than 50, none was done. Also, it appears he is having an immune phenomenon in the kidneys. I had discussed with the commercial real estate appraiser regarding the option of a steroid trial versus waiting for a biopsy. For biopsy, the patient may need a platelet transfusion. 3. Facial swelling, likely secondary to proteinuria. Nephrology following. At one time in the past, creatinine was 5, now it is improved. 4. Psychiatric issues. The patient is on monthly Invega injections. This causes a low white cell count, but not much to the platelets. 5. Status post gastrointestinal evaluation with [facility], EGD. 6. Abnormal LFTs. 7. Lymphadenopathy based on CT scan. IR consultation to see if lymphatic disorder is causing renal issues and low platelets as a immune phenomena. 8. We will follow the platelet count and revisit the issue of a steroid trial with the understanding that the renal biopsy may be affected. 09/23 - d/w dr high - Steroid trial today- as plt 38 LN bx done rt groin pt was on psych meds - Invega inj q month by psych - if needed - this may be given - Patient Problems (1) Thrombocytopenia Current Visit: Yes Status: Acute Subjective Date of service: 09/23/18 Principal diagnosis: low plt Interval history: no bleeding LN bx done Objective - Constitutional Vitals: Last Vital Signs Temp 98.6 F 09/23/18 05:32 Pulse 95 H 09/22/18 23:03 Resp 16 09/23/18 05:32 BP 133/87 09/23/18 05:32 Pulse Ox 99 09/22/18 23:03 Pain Intensity (0-10): denies any pain General appearance: no acute distress Performance status: 2- selfcare, ambulatory - EENT Eyes: EOM intact ENT: hearing intact, clear oral mucosa Lymph node exam: negative cervical - Neck Neck: normal ROM - Respiratory Respiratory effort: Positive: normal Respiratory: bilateral: CTA - Cardiovascular Heart Sounds: Present: S1 & S2 Extremities: No edema, normal temperature - Gastrointestinal General gastrointestinal: Present: soft, non-tender Rectal Exam: deferred - Genitourinary Male genitourinary: Present: deferred - Integumentary Integumentary: warm - Musculoskeletal Musculoskeletal: strength equal bilaterally - Neurologic Neurologic: moves all extremities - Labs Lab Results: Laboratory Results - last 24 hr 09/22/18 09/23/18 09/23/18 08:12 07:23 07:23 WBC 5.1 RBC 5.16 H Hgb 13.9 Hct 42.2 MCV 82 L MCH 27 L MCHC 33 RDW 16.0 H Plt Count 40 L Lymph % (Auto) Funds Transfer Clerk Add Manual Diff Complete Total Counted 100 Seg Neutrophils % Funds Transfer Clerk Seg Neuts % (Manual) 15.0 L Band Neutrophils % 2.0 Lymphocytes % (Manual) 67.0 H Reactive Lymphs % (Man) 2.0 Monocytes % (Manual) 14.0 H Eosinophils % (Manual) 0 Basophils % (Manual) 0 Metamyelocytes % 0 Myelocytes % 0 Promyelocytes % 0 Blast Cells % 0 Nucleated RBC % Not Reportable Seg Neutrophils # Man 0.7 L Band Neutrophils # 0.1 Lymphocytes # (Manual) 3.0 Abs React Lymphs (Man) 0.1 Monocytes # (Manual) 0.6 Eosinophils # (Manual) 0.0 Basophils # (Manual) 0.0 Metamyelocytes # 0.0 Myelocytes # 0.0 Promyelocytes # 0.0 Blast Cells # 0.0 WBC Morphology Not Reportable Hypersegmented Neuts Not Reportable Hyposegmented Neuts Not Reportable Hypogranular Neuts Not Reportable Smudge Cells Not Reportable Toxic Granulation Not Reportable Toxic Vacuolation Not Reportable Dohle Bodies Not Reportable Pelger-Huet Anomaly Not Reportable Domingo Rods Not Reportable Platelet Estimate Consistent w auto Clumped Platelets Not Reportable Plt Clumps, EDTA Not Reportable Large Platelets Not Reportable Giant Platelets Not Reportable Platelet Satelliting Not Reportable Plt Morphology Comment Not Reportable RBC Morphology Normal Dimorphic RBCs Not Reportable Polychromasia Not Reportable Hypochromasia Not Reportable Poikilocytosis Not Reportable Anisocytosis Not Reportable Microcytosis Not Reportable Macrocytosis Not Reportable Spherocytes Not Reportable Pappenheimer Bodies Not Reportable Sickle Cells Not Reportable Target Cells Not Reportable Tear Drop Cells Not Reportable Ovalocytes Not Reportable Helmet Cells Not Reportable [place] Bodies Not Reportable Enterprise Rings Not Reportable Yvette Cells Not Reportable Bite Cells Not Reportable Crenated Cell Not Reportable Elliptocytes Not Reportable Acanthocytes (Spur) Not Reportable Rouleaux Not Reportable Hemoglobin C Crystals Not Reportable Schistocytes Not Reportable Malaria parasites Not Reportable Ede Bodies Not Reportable Hem Pathologist Commnt No Sodium 142 Potassium 4.2 Chloride 108.9 H Carbon Dioxide 27 Anion Gap 10 BUN 5 L Creatinine 0.7 L Estimated GFR > 60 BUN/Creatinine Ratio 7 Glucose 89 Calcium 6.8 L Medications & Allergies - Medications Allergies/Adverse Reactions: Allergies No Known Allergies Allergy (Verified 09/21/18 15:17) Home Medications: Home Medications Medication Instructions Recorded Confirmed Last Taken Type Dicyclomine [Bentyl] 20 mg PO QID PRN #20 tablet 02/10/18 09/22/18 Unknown Rx Promethazine [Phenergan TAB] 25 mg PO Q6HR PRN #20 tab 02/10/18 09/22/18 Unknown Rx traMADol [Ultram] 50 mg PO Q6HR PRN #20 tablet 04/23/18 09/22/18 Unknown Rx Guaifenesin/Pseudoephedrne HCl 1 each PO BID PRN #20 tab.er.12h 04/24/18 09/22/18 Unknown Rx [Mucinex D ER 600-60 mg Tablet] RX: Ibuprofen 800 mg PO TID PRN #30 tablet 04/24/18 09/22/18 Unknown Rx Active Medications: Generic Name Dose Route Start Last Admin Trade Name Miltonq PRN Reason Stop Dose Admin Acetaminophen 650 mg 09/21/18 22:58 Tylenol PO Q4H PRN Pain MILD(1-3)/Fever >100.5/CORDON Furosemide 20 mg 09/22/18 06:00 09/23/18 05:31 Lasix IV 20 mg QDAY@0600 BRADEN Administration Levofloxacin 500 mg 09/22/18 06:00 09/23/18 05:31 Levaquin PO 500 mg Q24H BRADEN Administration Lisinopril 10 mg 09/22/18 10:00 09/22/18 12:29 Zestril PO 10 mg QDAY BRADEN Administration Morphine Sulfate 2 mg 09/21/18 22:58 09/22/18 20:15 Morphine IV 2 mg Q4H PRN Administration Pain, Moderate (4-6) Ondansetron HCl 4 mg 09/21/18 22:58 Zofran IV Q4H PRN Nausea And Vomiting Sodium Chloride 10 ml 09/22/18 10:00 09/22/18 21:48 Sodium Chloride Flush Syringe 10 Ml IV 10 ml BID BRADEN Administration Sodium Chloride 10 ml 09/21/18 22:58 Sodium Chloride Flush Syringe 10 Ml IV PRN PRN LINE FLUSH
[2018-09-23] MEDS: MORPHINE IV PRN ×2 (11:03→19:01)
[2018-09-23] MEDS: SODIUM CHLORIDE FLUSH SYRINGE 10 ML IV SCH ×2 (11:03→21:15)
[2018-09-23] MEDS: ZESTRIL PO SCH (11:03)
--- NOTE | 2018-09-23 11:15 | Progress Note ---
Assessment and Plan Assessment and plan: Ascites due to proteinurea ? Lymphadenopathy Thrombocytopenia UTI Bilateral pleural effusion bipolar disorder schizophrenia ADHD Plan Requested the records from [facility] [place], cont levaquin Resume home meds IR consulted for ascites and possible biopsy - BX of right inguinal lymph node No renal biopsy done for thrombocytopenia Consulted oncology, DVT prophylaxis with SCD Brief History: The patient is a 23 Yo male with hx significant for Bipolar disorder, Schizophrenia and and Thrombocytopenia who was sent by Dr. Pressley for evaluation of tachycardia, chest pain, back pain and abdominal pain. Recently he was treated for JOSE and Nephrotic syndrome at [facility] [place]. Workup included Hepatitis panel, HIV and LUBA were negative. He was evaluated for thrombocytopenia and had bone marrow biopsy. Patient had few episodes of vomiting yesterday. Urine positive for significant proteinurea. IR consulted for possible biopsy. History Interval history: Patient seen and examined medical records reviewed Patient underwent inguinal node biopsy yesterday Feels better no new complaints Vital signs reviewed Hospitalist Physical - Constitutional Vitals: Temp Pulse Resp BP Pulse Ox 98.6 F 95 H 16 133/87 99 09/23/18 05:32 09/22/18 23:03 09/23/18 05:32 09/23/18 05:32 09/22/18 23:03 General appearance: Present: no acute distress, well-nourished - EENT Eyes: Present: PERRL - Neck Neck: Present: supple, normal ROM - Respiratory Respiratory effort: normal Respiratory: bilateral: diminished, negative: rales, rhonchi, wheezing - Cardiovascular Rhythm: regular Heart Sounds: Present: S1 & S2 - Extremities Extremities: no ischemia, No edema - Abdominal General gastrointestinal: soft, non-tender, non-distended, normal bowel sounds - Integumentary Integumentary: Present: clear, warm - Psychiatric Psychiatric: appropriate mood/affect, cooperative - Neurologic Neurologic: CNII-XII intact, moves all extremities Results - Labs CBC & Chem 7: 09/23/18 07:23 09/23/18 07:23 Labs: Laboratory Last Values WBC 5.1 K/mm3 (4.5-11.0) 09/23/18 07:23 RBC 5.16 M/mm3 (3.65-5.03) H 09/23/18 07:23 Hgb 13.9 gm/dl (11.8-15.2) 09/23/18 07:23 Hct 42.2 % (35.5-45.6) 09/23/18 07:23 MCV 82 fl (84-94) L 09/23/18 07:23 MCH 27 pg (28-32) L 09/23/18 07:23 MCHC 33 % (32-34) 09/23/18 07:23 RDW 16.0 % (13.2-15.2) H 09/23/18 07:23 Plt Count 40 K/mm3 (140-440) L 09/22/18 08:12 Lymph % (Auto) Material Handler 2Nd Shift 09/23/18 07:23 Add Manual Diff Complete 09/22/18 08:12 Total Counted 100 09/22/18 08:12 Seg Neutrophils % Material Handler 2Nd Shift 09/23/18 07:23 Seg Neuts % (Manual) 15.0 % (40.0-70.0) L 09/22/18 08:12 2.0 % 09/22/18 08:12 67.0 % (13.4-35.0) H 09/22/18 08:12 Reactive Lymphs % (Man) 2.0 % 09/22/18 08:12 14.0 % (0.0-7.3) H 09/22/18 08:12 0 % (0.0-4.3) 09/22/18 08:12 0 % (0.0-1.8) 09/22/18 08:12 0 % 09/22/18 08:12 0 % 09/22/18 08:12 0 % 09/22/18 08:12 0 % 09/22/18 08:12 Nucleated RBC % Not Reportable 09/22/18 08:12 Seg Neutrophils # Man 0.7 K/mm3 (1.8-7.7) L 09/22/18 08:12 Band Neutrophils # 0.1 K/mm3 09/22/18 08:12 3.0 K/mm3 (1.2-5.4) 09/22/18 08:12 Abs React Lymphs (Man) 0.1 K/mm3 09/22/18 08:12 0.6 K/mm3 (0.0-0.8) 09/22/18 08:12 0.0 K/mm3 (0.0-0.4) 09/22/18 08:12 0.0 K/mm3 (0.0-0.1) 09/22/18 08:12 0.0 K/mm3 09/22/18 08:12 0.0 K/mm3 09/22/18 08:12 0.0 K/mm3 09/22/18 08:12 Blast Cells # 0.0 K/mm3 09/22/18 08:12 WBC Morphology Not Reportable 09/22/18 08:12 Hypersegmented Neuts Not Reportable 09/22/18 08:12 Hyposegmented Neuts Not Reportable 09/22/18 08:12 Hypogranular Neuts Not Reportable 09/22/18 08:12 Not Reportable 09/22/18 08:12 Not Reportable 09/22/18 08:12 Not Reportable 09/22/18 08:12 Not Reportable 09/22/18 08:12 Not Reportable 09/22/18 08:12 Not Reportable 09/22/18 08:12 Consistent w auto 09/22/18 08:12 Not Reportable 09/22/18 08:12 Plt Clumps, EDTA Not Reportable 09/22/18 08:12 Not Reportable 09/22/18 08:12 Not Reportable 09/22/18 08:12 Not Reportable 09/22/18 08:12 Plt Morphology Comment Not Reportable 09/22/18 08:12 RBC Morphology Normal 09/22/18 08:12 Dimorphic RBCs Not Reportable 09/22/18 08:12 Not Reportable 09/22/18 08:12 Not Reportable 09/22/18 08:12 Not Reportable 09/22/18 08:12 Not Reportable 09/22/18 08:12 Not Reportable 09/22/18 08:12 Not Reportable 09/22/18 08:12 Not Reportable 09/22/18 08:12 Not Reportable 09/22/18 08:12 Not Reportable 09/22/18 08:12 Not Reportable 09/22/18 08:12 Not Reportable 09/22/18 08:12 Not Reportable 09/22/18 08:12 Not Reportable 09/22/18 08:12 Not Reportable 09/22/18 08:12 Not Reportable 09/22/18 08:12 Not Reportable 09/22/18 08:12 Not Reportable 09/22/18 08:12 Not Reportable 09/22/18 08:12 Not Reportable 09/22/18 08:12 Acanthocytes (Spur) Not Reportable 09/22/18 08:12 Rouleaux Not Reportable 09/22/18 08:12 Not Reportable 09/22/18 08:12 Not Reportable 09/22/18 08:12 Not Reportable 09/22/18 08:12 Not Reportable 09/22/18 08:12 Hem Pathologist Commnt No 09/22/18 08:12 PT 12.9 Sec. (12.2-14.9) 09/21/18 21:45 INR 0.92 (0.87-1.13) 09/21/18 21:45 APTT 33.6 Sec. (24.2-36.6) 09/21/18 21:45 Sodium 142 mmol/L (137-145) 09/23/18 07:23 Potassium 4.2 mmol/L (3.6-5.0) 09/23/18 07:23 Chloride 108.9 mmol/L (98-107) H 09/23/18 07:23 Carbon Dioxide 27 mmol/L (22-30) 09/23/18 07:23 10 mmol/L 09/23/18 07:23 BUN 5 mg/dL (9-20) L 09/23/18 07:23 0.7 mg/dL (0.8-1.5) L 09/23/18 07:23 Estimated GFR > 60 ml/min 09/23/18 07:23 7 % 09/23/18 07:23 Glucose 89 mg/dL (75-100) 09/23/18 07:23 Calcium 6.8 mg/dL (8.4-10.2) L 09/23/18 07:23 < 0.20 mg/dL (0.1-1.2) 09/21/18 16:41 < 0.2 mg/dL (0-0.2) 09/21/18 16:41 0.0 mg/dL 09/21/18 16:41 AST 71 units/L (5-40) H 09/21/18 16:41 ALT 44 units/L (7-56) 09/21/18 16:41 183 units/L (35-129) H 09/21/18 16:41 4.5 g/dL (6.3-8.2) L 09/21/18 16:41 0.8 g/dL (3.9-5) L 09/21/18 16:41 0.2 % 09/21/18 16:41 Amylase 124 units/L (27-131) 09/21/18 16:41 38 units/L (13-60) 09/21/18 16:41 Yellow (Yellow) 09/21/18 20:49 Slightly-cloudy (Clear) 09/21/18 20:49 6.0 (5.0-7.0) 09/21/18 20:49 Ur Specific [place] 1.027 (1.003-1.030) 09/21/18 20:49 >500 mg/dL (Negative) 09/21/18 20:49 50 mg/dL (Negative) 09/21/18 20:49 Neg mg/dL (Negative) 09/21/18 20:49 Neg (Negative) 09/21/18 20:49 Neg (Negative) 09/21/18 20:49 Neg (Negative) 09/21/18 20:49 < 2.0 mg/dL (<2.0) 09/21/18 20:49 Ur Leukocyte Esterase Neg (Negative) 09/21/18 20:49 9.0 /HPF (0.0-6.0) H 09/21/18 20:49 12.0 /HPF (0.0-6.0) 09/21/18 20:49 Hyaline Casts 15 /LPF 09/21/18 20:49 Few /HPF 09/21/18 20:49 Active Medications - Current Medications Current Medications: Generic Name Dose Route Start Last Admin Trade Name Freq PRN Reason Stop Dose Admin Acetaminophen 650 mg 09/21/18 22:58 Tylenol PO Q4H PRN Pain MILD(1-3)/Fever >100.5/CORDON Furosemide 20 mg 09/22/18 06:00 09/23/18 05:31 Lasix IV 20 mg QDAY@0600 BRADEN Administration Levofloxacin 500 mg 09/22/18 06:00 09/23/18 05:31 Levaquin PO 500 mg Q24H BRADEN Administration Lisinopril 10 mg 09/22/18 10:00 09/23/18 11:03 Zestril PO 10 mg QDAY BRADEN Administration Morphine Sulfate 2 mg 09/21/18 22:58 09/23/18 11:03 Morphine IV 2 mg Q4H PRN Administration Pain, Moderate (4-6) Ondansetron HCl 4 mg 09/21/18 22:58 Zofran IV Q4H PRN Nausea And Vomiting Sodium Chloride 10 ml 09/22/18 10:00 09/23/18 11:03 Sodium Chloride Flush Syringe 10 Ml IV 10 ml BID BRADEN Administration Sodium Chloride 10 ml 09/21/18 22:58 Sodium Chloride Flush Syringe 10 Ml IV PRN PRN LINE FLUSH
[2018-09-23 14:18] LABS: Protein/Creatinine Ratio,Urine 12.1
[2018-09-23 15:20] LABS: Band Neutrophils # (Manual) 0.1 K/mm3; Basophils % (Manual) 0 % (0.0-1.8); Eosinophils % (Manual) 0 % (0.0-4.3); Platelet Estimate Consistent w Auto; RBC Morphology Normal; Total Cells Counted 100
[2018-09-23 15:26] LABS: Platelet Count 38 K/mm3 (140-440)
[2018-09-23] MEDS ORDERED: DELTASONE PO SCH (16:00)
[2018-09-23] MEDS: PROTONIX PO SCH (19:01)
[2018-09-23] MEDS: ZOFRAN IV PRN (19:04)
[2018-09-23] MEDS ORDERED: CEPHULAC PO ONE (20:29)
[2018-09-23] MEDS: DELTASONE PO SCH (21:15)
[2018-09-24] MEDS: LASIX IV SCH (05:54)
[2018-09-24] MEDS: LEVAQUIN PO SCH (05:55)
[2018-09-24 07:20] LABS: Hematocrit 41.4 % (35.5-45.6); Hemoglobin 13.5 gm/dl (11.8-15.2); Mean Corpuscular HGB Conc 33 % (32-34); Mean Corpuscular Volume 81 fl (84-94); Red Blood Count 5.09 M/mm3 (3.65-5.03); Red Cell Distribution Width 15.8 % (13.2-15.2)
[2018-09-24 07:29] LABS: Platelet Count 39 K/mm3 (140-440)
--- NOTE | 2018-09-24 09:07 | Progress Note ---
Assessment and Plan 1. Nephrotic syndrome: Possible diagnoses includes FSGS and Minimal change. Unlikely immune mediated GN. Patient agreed for Kidney biopsy. Will wait for platelet count to get better. Continue Lisinopril. 2. Thrombocytopenia: Followed by Heme-Onc. Platelet is 39 today. 3. Lymphadenopathy: S/p needle biopsy. 4. B/l pleural effusion and Ascites: Likely due to Nephrotic syndrome. 5. Schizophrenia. Subjective Date of service: 09/24/18 Principal diagnosis: low plt Interval history: Patient was seen and examined at the bedside. Doing ok. Objective - Vital Signs Vital signs: Vital Signs - 12hr 09/23/18 09/24/18 22:33 05:41 Temperature 98.3 F 98.3 F Pulse Rate 99 H 95 H Respiratory 20 20 Rate Blood Pressure 109/70 108/68 O2 Sat by Pulse 94 95 Oximetry - General Appearance General appearance: well-developed, well-nourished, appears stated age, other (not in distress) EENT: ATNC, PERRL, mucous membranes moist, hearing intact, vision intact Neck: supple Respiratory: Present: Clear to Ascultation Cardiology: regular, S1S2, no murmurs Gastrointestinal: normoactive bowel sounds, no tenderness Integumentary: no rash, warm and dry Neurologic: no focal deficit, no asterixis, alert and oriented x3 Musculoskeletal: other (no edema) - Lab 09/25/18 08:32 09/25/18 08:32 Most recent lab results Calcium 6.8 mg/dL (8.4-10.2) L 09/23/18 07:23 42.0 mg/dL (0.1-20.0) H 09/23/18 13:40 55 mmol/L 09/23/18 13:40 508 mg/dL (5-11.8) H 09/23/18 13:40 Medications & Allergies - Medications Allergies/Adverse Reactions: Allergies No Known Allergies Allergy (Verified 09/21/18 15:17) Home Medications: Home Medications Medication Instructions Recorded Confirmed Last Taken Type Dicyclomine [Bentyl] 20 mg PO QID PRN #20 tablet 02/10/18 09/22/18 Unknown Rx Promethazine [Phenergan TAB] 25 mg PO Q6HR PRN #20 tab 02/10/18 09/22/18 Unknown Rx traMADol [Ultram] 50 mg PO Q6HR PRN #20 tablet 04/23/18 09/22/18 Unknown Rx Guaifenesin/Pseudoephedrne HCl 1 each PO BID PRN #20 tab.er.12h 04/24/18 09/22/18 Unknown Rx [Mucinex D ER 600-60 mg Tablet] Ibuprofen 800 mg PO TID PRN #30 tablet 04/24/18 09/22/18 Unknown Rx Active Medications: Generic Name Dose Route Start Last Admin Trade Name Freq PRN Reason Stop Dose Admin Acetaminophen 650 mg 09/21/18 22:58 Tylenol PO Q4H PRN Pain MILD(1-3)/Fever >100.5/CORDON Furosemide 20 mg 09/22/18 06:00 09/24/18 05:54 Lasix IV 20 mg QDAY@0600 BRADEN Administration Levofloxacin 500 mg 09/22/18 06:00 09/24/18 05:55 Levaquin PO 500 mg Q24H BRADEN Administration Lisinopril 10 mg 09/22/18 10:00 09/23/18 11:03 Zestril PO 10 mg QDAY BRADEN Administration Morphine Sulfate 2 mg 09/21/18 22:58 09/23/18 19:01 Morphine IV 2 mg Q4H PRN Administration Pain, Moderate (4-6) Ondansetron HCl 4 mg 09/21/18 22:58 09/23/18 19:04 Zofran IV 4 mg Q4H PRN Administration Nausea And Vomiting Pantoprazole Sodium 40 mg 09/23/18 16:00 09/23/18 19:01 Protonix PO 40 mg QDAY BRADEN Administration Prednisone 50 mg 09/23/18 20:00 09/23/18 21:15 Deltasone PO 50 mg QDAY BRADEN Administration Sodium Chloride 10 ml 09/22/18 10:00 09/23/18 21:15 Sodium Chloride Flush Syringe 10 Ml IV 10 ml BID BRADEN Administration Sodium Chloride 10 ml 09/21/18 22:58 Sodium Chloride Flush Syringe 10 Ml IV PRN PRN LINE FLUSH
--- NOTE | 2018-09-24 11:10 | Progress Note ---
Assessment and Plan Assessment and plan: Ascites due to proteinurea ? Lymphadenopathy; s/p biopsy Thrombocytopenia; mild improvement UTI; continue antibiotics Bilateral pleural effusion bipolar disorder schizophrenia ADHD Plan [place] [facility] Resume home meds s/p BX of right inguinal lymph node, pending pathology report Possible renal biopsy on 09/26/2018 Oncology evaluation and recommendation noted and appreciated, DVT prophylaxis with SCD Brief History: The patient is a 23 Yo male with hx significant for Bipolar disorder, Schizophrenia and and Thrombocytopenia who was sent by Dr. Pressley for evaluation of tachycardia, chest pain, back pain and abdominal pain. Recently he was treated for JOSE and Nephrotic syndrome [place] [facility] Workup included Hepatitis panel, HIV and LUBA were negative. He was evaluated for thrombocytopenia and had bone marrow biopsy. Patient had few episodes of vomiting yesterday. Urine positive for significant proteinurea. IR consulted for possible biopsy. History Interval history: Patient seen and examined medical records reviewed No complaints vital signs noted Scheduled for kidney biopsy on Wednesday Hospitalist Physical - Constitutional Vitals: Temp Pulse Resp BP Pulse Ox 98.3 F 95 H 20 108/68 95 09/24/18 05:41 09/24/18 05:41 09/24/18 05:41 09/24/18 05:41 09/24/18 05:41 General appearance: Present: no acute distress, well-nourished - EENT Eyes: Present: PERRL, EOM intact - Neck Neck: Present: supple, normal ROM - Respiratory Respiratory effort: normal Respiratory: bilateral: diminished, negative: rales, rhonchi, wheezing - Cardiovascular Rhythm: regular Heart Sounds: Present: S1 & S2 - Extremities Extremities: no ischemia, No edema - Abdominal General gastrointestinal: soft, non-tender, non-distended, normal bowel sounds - Integumentary Integumentary: Present: clear, warm - Psychiatric Psychiatric: appropriate mood/affect, cooperative - Neurologic Neurologic: CNII-XII intact, moves all extremities Results - Labs CBC & Chem 7: 09/24/18 06:43 09/23/18 07:23 Labs: Laboratory Last Values WBC 4.7 K/mm3 (4.5-11.0) 09/24/18 06:43 RBC 5.09 M/mm3 (3.65-5.03) H 09/24/18 06:43 Hgb 13.5 gm/dl (11.8-15.2) 09/24/18 06:43 Hct 41.4 % (35.5-45.6) 09/24/18 06:43 MCV 81 fl (84-94) L 09/24/18 06:43 MCH 27 pg (28-32) L 09/24/18 06:43 MCHC 33 % (32-34) 09/24/18 06:43 RDW 15.8 % (13.2-15.2) H 09/24/18 06:43 Plt Count 39 K/mm3 (140-440) L 09/24/18 06:43 Lymph % (Auto) Afternoon Nanny 09/24/18 06:43 Add Manual Diff Complete 09/23/18 07:23 Total Counted 100 09/23/18 07:23 Seg Neutrophils % Afternoon Nanny 09/24/18 06:43 Seg Neuts % (Manual) 61.0 % (40.0-70.0) 09/23/18 07:23 1.0 % 09/23/18 07:23 29.0 % (13.4-35.0) 09/23/18 07:23 Reactive Lymphs % (Man) 1.0 % 09/23/18 07:23 8.0 % (0.0-7.3) H 09/23/18 07:23 0 % (0.0-4.3) 09/23/18 07:23 0 % (0.0-1.8) 09/23/18 07:23 0 % 09/23/18 07:23 0 % 09/23/18 07:23 0 % 09/23/18 07:23 0 % 09/23/18 07:23 Nucleated RBC % Not Reportable 09/23/18 07:23 Seg Neutrophils # Man 3.1 K/mm3 (1.8-7.7) 09/23/18 07:23 Band Neutrophils # 0.1 K/mm3 09/23/18 07:23 1.5 K/mm3 (1.2-5.4) 09/23/18 07:23 Abs React Lymphs (Man) 0.1 K/mm3 09/23/18 07:23 0.4 K/mm3 (0.0-0.8) 09/23/18 07:23 0.0 K/mm3 (0.0-0.4) 09/23/18 07:23 0.0 K/mm3 (0.0-0.1) 09/23/18 07:23 0.0 K/mm3 09/23/18 07:23 0.0 K/mm3 09/23/18 07:23 0.0 K/mm3 09/23/18 07:23 Blast Cells # 0.0 K/mm3 09/23/18 07:23 WBC Morphology Not Reportable 09/23/18 07:23 Hypersegmented Neuts Not Reportable 09/23/18 07:23 Hyposegmented Neuts Not Reportable 09/23/18 07:23 Hypogranular Neuts Not Reportable 09/23/18 07:23 Not Reportable 09/23/18 07:23 Not Reportable 09/23/18 07:23 Not Reportable 09/23/18 07:23 Not Reportable 09/23/18 07:23 Not Reportable 09/23/18 07:23 Not Reportable 09/23/18 07:23 Consistent w auto 09/23/18 07:23 Not Reportable 09/23/18 07:23 Plt Clumps, EDTA Not Reportable 09/23/18 07:23 Not Reportable 09/23/18 07:23 Not Reportable 09/23/18 07:23 Not Reportable 09/23/18 07:23 Plt Morphology Comment Not Reportable 09/23/18 07:23 RBC Morphology Normal 09/23/18 07:23 Dimorphic RBCs Not Reportable 09/23/18 07:23 Not Reportable 09/23/18 07:23 Not Reportable 09/23/18 07:23 Not Reportable 09/23/18 07:23 Not Reportable 09/23/18 07:23 Not Reportable 09/23/18 07:23 Not Reportable 09/23/18 07:23 Not Reportable 09/23/18 07:23 Not Reportable 09/23/18 07:23 Not Reportable 09/23/18 07:23 Not Reportable 09/23/18 07:23 Not Reportable 09/23/18 07:23 Not Reportable 09/23/18 07:23 Not Reportable 09/23/18 07:23 Not Reportable 09/23/18 07:23 Not Reportable 09/23/18 07:23 Not Reportable 09/23/18 07:23 Not Reportable 09/23/18 07:23 Not Reportable 09/23/18 07:23 Not Reportable 09/23/18 07:23 Acanthocytes (Spur) Not Reportable 09/23/18 07:23 Rouleaux Not Reportable 09/23/18 07:23 Not Reportable 09/23/18 07:23 Not Reportable 09/23/18 07:23 Not Reportable 09/23/18 07:23 Not Reportable 09/23/18 07:23 Hem Pathologist Commnt No 09/23/18 07:23 PT 12.9 Sec. (12.2-14.9) 09/21/18 21:45 INR 0.92 (0.87-1.13) 09/21/18 21:45 APTT 33.6 Sec. (24.2-36.6) 09/21/18 21:45 Sodium 142 mmol/L (137-145) 09/23/18 07:23 Potassium 4.2 mmol/L (3.6-5.0) 09/23/18 07:23 Chloride 108.9 mmol/L (98-107) H 09/23/18 07:23 Carbon Dioxide 27 mmol/L (22-30) 09/23/18 07:23 10 mmol/L 09/23/18 07:23 BUN 5 mg/dL (9-20) L 09/23/18 07:23 0.7 mg/dL (0.8-1.5) L 09/23/18 07:23 Estimated GFR > 60 ml/min 09/23/18 07:23 7 % 09/23/18 07:23 Glucose 89 mg/dL (75-100) 09/23/18 07:23 Calcium 6.8 mg/dL (8.4-10.2) L 09/23/18 07:23 < 0.20 mg/dL (0.1-1.2) 09/21/18 16:41 < 0.2 mg/dL (0-0.2) 09/21/18 16:41 0.0 mg/dL 09/21/18 16:41 AST 71 units/L (5-40) H 09/21/18 16:41 ALT 44 units/L (7-56) 09/21/18 16:41 183 units/L (35-129) H 09/21/18 16:41 4.5 g/dL (6.3-8.2) L 09/21/18 16:41 0.8 g/dL (3.9-5) L 09/21/18 16:41 0.2 % 09/21/18 16:41 Amylase 124 units/L (27-131) 09/21/18 16:41 38 units/L (13-60) 09/21/18 16:41 Yellow (Yellow) 09/21/18 20:49 Slightly-cloudy (Clear) 09/21/18 20:49 6.0 (5.0-7.0) 09/21/18 20:49 Ur Specific [place] 1.027 (1.003-1.030) 09/21/18 20:49 >500 mg/dL (Negative) 09/21/18 20:49 50 mg/dL (Negative) 09/21/18 20:49 Neg mg/dL (Negative) 09/21/18 20:49 Neg (Negative) 09/21/18 20:49 Neg (Negative) 09/21/18 20:49 Neg (Negative) 09/21/18 20:49 < 2.0 mg/dL (<2.0) 09/21/18 20:49 Ur Leukocyte Esterase Neg (Negative) 09/21/18 20:49 9.0 /HPF (0.0-6.0) H 09/21/18 20:49 12.0 /HPF (0.0-6.0) 09/21/18 20:49 Hyaline Casts 15 /LPF 09/21/18 20:49 Few /HPF 09/21/18 20:49 42.0 mg/dL (0.1-20.0) H 09/23/18 13:40 Protein/Creatinin Ratio 12.10 09/23/18 13:40 55 mmol/L 09/23/18 13:40 508 mg/dL (5-11.8) H 09/23/18 13:40 Active Medications - Current Medications Current Medications: Generic Name Dose Route Start Last Admin Trade Name Freq PRN Reason Stop Dose Admin Acetaminophen 650 mg 09/21/18 22:58 Tylenol PO Q4H PRN Pain MILD(1-3)/Fever >100.5/CORDON Furosemide 20 mg 09/22/18 06:00 09/24/18 05:54 Lasix IV 20 mg QDAY@0600 BRADEN Administration Levofloxacin 500 mg 09/22/18 06:00 09/24/18 05:55 Levaquin PO 500 mg Q24H BRADEN Administration Lisinopril 10 mg 09/22/18 10:00 09/23/18 11:03 Zestril PO 10 mg QDAY BRADEN Administration Morphine Sulfate 2 mg 09/21/18 22:58 09/23/18 19:01 Morphine IV 2 mg Q4H PRN Administration Pain, Moderate (4-6) Ondansetron HCl 4 mg 09/21/18 22:58 09/23/18 19:04 Zofran IV 4 mg Q4H PRN Administration Nausea And Vomiting Pantoprazole Sodium 40 mg 09/23/18 16:00 09/23/18 19:01 Protonix PO 40 mg QDAY BRADEN Administration Prednisone 50 mg 09/23/18 20:00 09/23/18 21:15 Deltasone PO 50 mg QDAY BRADEN Administration Sodium Chloride 10 ml 09/22/18 10:00 09/23/18 21:15 Sodium Chloride Flush Syringe 10 Ml IV 10 ml BID BRADEN Administration Sodium Chloride 10 ml 09/21/18 22:58 Sodium Chloride Flush Syringe 10 Ml IV PRN PRN LINE FLUSH
[2018-09-24] MEDS: SODIUM CHLORIDE FLUSH SYRINGE 10 ML IV SCH ×2 (11:25→21:58)
[2018-09-24] MEDS: DELTASONE PO SCH ×2 (11:25→16:25)
[2018-09-24] MEDS: PROTONIX PO SCH (11:25)
[2018-09-24] MEDS: ZESTRIL PO SCH (11:25)
[2018-09-24 11:50] LABS: Basophils % (Manual) 0 % (0.0-1.8); Eosinophils % (Manual) 0 % (0.0-4.3); Total Cells Counted 100
[2018-09-24 11:51] LABS: RBC Morphology Normal
[2018-09-24 11:52] LABS: Platelet Estimate Consistent w Auto
--- NOTE | 2018-09-24 14:51 | Hem/Onc Progress Note ---
Assessment and Plan 1. Thrombocytopenia. In 10/2017, the patient's platelets were normal. This may be an immune phenomena. An investigation for deficiency workup and bone marrow biopsy was done at [facility], adequate megakaryocytes were present. 2. There is an option of a steroid trial, however, as the platelets are more than 50, none was done. Also, it appears he is having an immune phenomenon in the kidneys. I had discussed with the desktop specialist regarding the option of a steroid trial versus waiting for a biopsy. For biopsy, the patient may need a platelet transfusion. 3. Facial swelling, likely secondary to proteinuria. Nephrology following. At one time in the past, creatinine was 5, now it is improved. 4. Psychiatric issues. The patient is on monthly Invega injections. This causes a low white cell count, but not much to the platelets. 5. Status post gastrointestinal evaluation with [facility], EGD. 6. Abnormal LFTs. 7. Lymphadenopathy based on CT scan. bx done 8. We will follow the platelet count LN bx done rt groin - path pending pt was on psych meds - Invega inj q month by psych - if needed - this may be given 09/24 - prednisone 60 mg trial - Patient Problems (1) Thrombocytopenia Current Visit: Yes Status: Acute Subjective Date of service: 09/24/18 Principal diagnosis: low plt - likely ITP Interval history: no bleeding Objective - Constitutional Vitals: Last Vital Signs Temp 97.7 F 09/24/18 12:11 Pulse 98 H 09/24/18 12:11 Resp 14 09/24/18 12:11 BP 119/72 09/24/18 12:11 Pulse Ox 90 09/24/18 12:11 Pain Intensity (0-10): denies any pain General appearance: no acute distress Performance status: 3-limited selfcare - EENT Eyes: EOM intact ENT: hearing intact, clear oral mucosa Lymph node exam: negative cervical - Neck Neck: normal ROM - Respiratory Respiratory effort: Positive: normal Respiratory: bilateral: CTA - Cardiovascular Heart Sounds: Present: S1 & S2 Extremities: No edema - Gastrointestinal General gastrointestinal: Present: soft, non-tender Rectal Exam: deferred - Genitourinary Male genitourinary: Present: deferred - Integumentary Integumentary: warm - Musculoskeletal Musculoskeletal: strength equal bilaterally - Neurologic Neurologic: moves all extremities - Labs Lab Results: Laboratory Results - last 24 hr 05/10/19 05/11/19 07:23 06:43 WBC 4.7 RBC 5.09 H Hgb 13.5 Hct 41.4 MCV 81 L MCH 27 L MCHC 33 RDW 15.8 H Plt Count 38 L 39 L Lymph % (Auto) Lens Blocker Add Manual Diff Complete Complete Total Counted 100 100 Seg Neutrophils % Lens Blocker Seg Neuts % (Manual) 61.0 61.0 Band Neutrophils % 1.0 0 Lymphocytes % (Manual) 29.0 34.0 Reactive Lymphs % (Man) 1.0 3.0 Monocytes % (Manual) 8.0 H 2.0 Eosinophils % (Manual) 0 0 Basophils % (Manual) 0 0 Metamyelocytes % 0 0 Myelocytes % 0 0 Promyelocytes % 0 0 Blast Cells % 0 0 Nucleated RBC % Not Reportable Not Reportable Seg Neutrophils # Man 3.1 2.9 Band Neutrophils # 0.1 0.0 Lymphocytes # (Manual) 1.5 1.6 Abs React Lymphs (Man) 0.1 0.1 Monocytes # (Manual) 0.4 0.1 Eosinophils # (Manual) 0.0 0.0 Basophils # (Manual) 0.0 0.0 Metamyelocytes # 0.0 0.0 Myelocytes # 0.0 0.0 Promyelocytes # 0.0 0.0 Blast Cells # 0.0 0.0 WBC Morphology Not Reportable Not Reportable Hypersegmented Neuts Not Reportable Not Reportable Hyposegmented Neuts Not Reportable Not Reportable Hypogranular Neuts Not Reportable Not Reportable Smudge Cells Not Reportable Not Reportable Toxic Granulation Not Reportable Not Reportable Toxic Vacuolation Not Reportable Not Reportable Dohle Bodies Not Reportable Not Reportable Pelger-Huet Anomaly Not Reportable Not Reportable Domingo Rods Not Reportable Not Reportable Platelet Estimate Consistent w auto Consistent w auto Clumped Platelets Not Reportable Not Reportable Plt Clumps, EDTA Not Reportable Not Reportable Large Platelets Not Reportable Not Reportable Giant Platelets Not Reportable Not Reportable Platelet Satelliting Not Reportable Not Reportable Plt Morphology Comment Not Reportable Not Reportable RBC Morphology Normal Normal Dimorphic RBCs Not Reportable Not Reportable Polychromasia Not Reportable Not Reportable Hypochromasia Not Reportable Not Reportable Poikilocytosis Not Reportable Not Reportable Anisocytosis Not Reportable Not Reportable Microcytosis Not Reportable Not Reportable Macrocytosis Not Reportable Not Reportable Spherocytes Not Reportable Not Reportable Pappenheimer Bodies Not Reportable Not Reportable Sickle Cells Not Reportable Not Reportable Target Cells Not Reportable Not Reportable Tear Drop Cells Not Reportable Not Reportable Ovalocytes Not Reportable Not Reportable Helmet Cells Not Reportable Not Reportable [place] Bodies Not Reportable Not Reportable [place] Rings Not Reportable Not Reportable Yvette Cells Not Reportable Not Reportable Bite Cells Not Reportable Not Reportable Crenated Cell Not Reportable Not Reportable Elliptocytes Not Reportable Not Reportable Acanthocytes (Spur) Not Reportable Not Reportable Rouleaux Not Reportable Not Reportable Hemoglobin C Crystals Not Reportable Not Reportable Schistocytes Not Reportable Not Reportable Malaria parasites Not Reportable Not Reportable Ede Bodies Not Reportable Not Reportable Hem Pathologist Commnt No No Medications & Allergies - Medications Allergies/Adverse Reactions: Allergies No Known Allergies Allergy (Verified 09/21/18 15:17) Home Medications: Home Medications Medication Instructions Recorded Confirmed Last Taken Type Dicyclomine [Bentyl] 20 mg PO QID PRN #20 tablet 02/10/18 09/22/18 Unknown Rx Promethazine [Phenergan TAB] 25 mg PO Q6HR PRN #20 tab 02/10/18 09/22/18 Unknown Rx traMADol [Ultram] 50 mg PO Q6HR PRN #20 tablet 04/23/18 09/22/18 Unknown Rx Guaifenesin/Pseudoephedrne HCl 1 each PO BID PRN #20 tab.er.12h 04/24/18 09/22/18 Unknown Rx [Mucinex D ER 600-60 mg Tablet] Ibuprofen 800 mg PO TID PRN #30 tablet 04/24/18 09/22/18 Unknown Rx Active Medications: Generic Name Dose Route Start Last Admin Trade Name Freq PRN Reason Stop Dose Admin Acetaminophen 650 mg 09/21/18 22:58 Tylenol PO Q4H PRN Pain MILD(1-3)/Fever >100.5/CORDON Furosemide 20 mg 09/22/18 06:00 09/24/18 05:54 Lasix IV 20 mg QDAY@0600 BRADEN Administration Levofloxacin 500 mg 09/22/18 06:00 09/24/18 05:55 Levaquin PO 500 mg Q24H BRADEN Administration Lisinopril 10 mg 09/22/18 10:00 09/24/18 11:25 Zestril PO 10 mg QDAY BRADEN Administration Morphine Sulfate 2 mg 09/21/18 22:58 09/23/18 19:01 Morphine IV 2 mg Q4H PRN Administration Pain, Moderate (4-6) Ondansetron HCl 4 mg 09/21/18 22:58 09/23/18 19:04 Zofran IV 4 mg Q4H PRN Administration Nausea And Vomiting Pantoprazole Sodium 40 mg 09/23/18 16:00 09/24/18 11:25 Protonix PO 40 mg QDAY BRADEN Administration Prednisone 60 mg 09/24/18 15:00 Deltasone PO QDAY BRADEN Sodium Chloride 10 ml 09/22/18 10:00 09/24/18 11:25 Sodium Chloride Flush Syringe 10 Ml IV 10 ml BID BRADEN Administration Sodium Chloride 10 ml 09/21/18 22:58 Sodium Chloride Flush Syringe 10 Ml IV PRN PRN LINE FLUSH
[2018-09-24] MEDS: ZOFRAN IV PRN ×2 (17:52→22:48)
[2018-09-24] MEDS: MORPHINE IV PRN ×2 (17:55→22:47)
[2018-09-25] MEDS: LEVAQUIN PO SCH (05:48)
[2018-09-25] MEDS: LASIX IV SCH (05:48)
[2018-09-25 08:44] LABS: Hematocrit 39.5 % (35.5-45.6); Hemoglobin 13.2 gm/dl (11.8-15.2); Mean Corpuscular HGB Conc 33 % (32-34); Mean Corpuscular Volume 81 fl (84-94); Red Cell Distribution Width 15.7 % (13.2-15.2)
[2018-09-25 08:46] LABS: Platelet Count 64 K/mm3 (140-440)
[2018-09-25 09:05] LABS: BUN/Creatinine Ratio 16; Blood Urea Nitrogen 11 mg/dL (9-20); Hemolysis Index 19
[2018-09-25 10:41] LABS: Total Cells Counted 100
[2018-09-25 10:42] LABS: Basophils % (Manual) 0 % (0.0-1.8); Eosinophils % (Manual) 0 % (0.0-4.3)
[2018-09-25 10:43] LABS: Ovalocytes Few
[2018-09-25 10:44] LABS: Platelet Estimate Appears Decreased
[2018-09-25] MEDS: DELTASONE PO SCH (11:12)
[2018-09-25] MEDS: PROTONIX PO SCH (11:13)
[2018-09-25] MEDS: ZESTRIL PO SCH (11:13)
[2018-09-25] MEDS: SODIUM CHLORIDE FLUSH SYRINGE 10 ML IV SCH ×2 (11:14→21:36)
[2018-09-25] MEDS ORDERED: MAGNESIUM SULFATE 3 GM in NACL 0.9% 100 ML IV ONE ×2 (11:19→11:20)
--- NOTE | 2018-09-25 11:19 | Progress Note ---
Assessment and Plan 1. Nephrotic syndrome: Possible diagnoses includes FSGS and Minimal change. Unlikely immune mediated GN. Patient agreed for Kidney biopsy. Will wait for platelet count to get better. Continue Lisinopril. 2. FEN: Volume overload, IV Lasix. Replete Mg. Monitor lytes. 3. Thrombocytopenia: Followed by Heme-Onc. Platelet is 64 today. 4. Lymphadenopathy: S/p needle biopsy. 5. B/l pleural effusion and Ascites: Likely due to Nephrotic syndrome. 6. Schizophrenia. Subjective Date of service: 09/25/18 Principal diagnosis: low plt Interval history: Patient was seen and examined at the bedside. Doing ok. No new complaint. Objective - Vital Signs Vital signs: Vital Signs - 12hr 09/25/18 11:13 Pulse Rate 92 H Blood Pressure 115/72 - General Appearance General appearance: well-developed, well-nourished, appears stated age, other (not in distress) EENT: ATNC, PERRL, hearing intact, vision intact Neck: supple Respiratory: Present: Clear to Ascultation Cardiology: regular, S1S2, no murmurs Gastrointestinal: normoactive bowel sounds, no tenderness, no distended Integumentary: no rash, warm and dry Neurologic: no focal deficit, no asterixis, alert and oriented x3 Musculoskeletal: other (no edema) Psychiatric: cooperative - Lab 09/25/18 08:32 09/25/18 08:32 Most recent lab results Calcium 7.0 mg/dL (8.4-10.2) L 09/25/18 08:32 Magnesium 1.40 mg/dL (1.7-2.3) L 09/25/18 08:32 42.0 mg/dL (0.1-20.0) H 09/23/18 13:40 55 mmol/L 09/23/18 13:40 508 mg/dL (5-11.8) H 09/23/18 13:40 Medications & Allergies - Medications Allergies/Adverse Reactions: Allergies No Known Allergies Allergy (Verified 09/21/18 15:17) Home Medications: Home Medications Medication Instructions Recorded Confirmed Last Taken Type Dicyclomine [Bentyl] 20 mg PO QID PRN #20 tablet 02/10/18 09/22/18 Unknown Rx Promethazine [Phenergan TAB] 25 mg PO Q6HR PRN #20 tab 02/10/18 09/22/18 Unknown Rx traMADol [Ultram] 50 mg PO Q6HR PRN #20 tablet 04/23/18 09/22/18 Unknown Rx Guaifenesin/Pseudoephedrne HCl 1 each PO BID PRN #20 tab.er.12h 04/24/18 09/22/18 Unknown Rx [Mucinex D ER 600-60 mg Tablet] Ibuprofen 800 mg PO TID PRN #30 tablet 04/24/18 09/22/18 Unknown Rx Active Medications: Generic Name Dose Route Start Last Admin Trade Name Freq PRN Reason Stop Dose Admin Acetaminophen 650 mg 09/21/18 22:58 Tylenol PO Q4H PRN Pain MILD(1-3)/Fever >100.5/CORDON Furosemide 20 mg 09/22/18 06:00 09/25/18 05:48 Lasix IV 20 mg QDAY@0600 BRADEN Administration Levofloxacin 500 mg 09/22/18 06:00 09/25/18 05:48 Levaquin PO 500 mg Q24H BRADEN Administration Lisinopril 10 mg 09/22/18 10:00 09/25/18 11:13 Zestril PO 10 mg QDAY BRADEN Administration Morphine Sulfate 2 mg 09/21/18 22:58 09/24/18 22:47 Morphine IV 2 mg Q4H PRN Administration Pain, Moderate (4-6) Ondansetron HCl 4 mg 09/21/18 22:58 09/24/18 22:48 Zofran IV 4 mg Q4H PRN Administration Nausea And Vomiting Pantoprazole Sodium 40 mg 09/23/18 16:00 09/25/18 11:13 Protonix PO 40 mg QDAY BRADEN Administration Prednisone 60 mg 09/24/18 15:00 09/25/18 11:12 Deltasone PO 60 mg QDAY BRADEN Administration Sodium Chloride 10 ml 09/22/18 10:00 09/25/18 11:14 Sodium Chloride Flush Syringe 10 Ml IV 10 ml BID BRADEN Administration Sodium Chloride 10 ml 09/21/18 22:58 Sodium Chloride Flush Syringe 10 Ml IV PRN PRN LINE FLUSH
--- NOTE | 2018-09-25 11:20 | Progress Note ---
Assessment and Plan Assessment and plan: --Ascites due to proteinurea : Supportive care --Lymphadenopathy; s/p biopsy Follow histopathology, hematology following --Thrombocytopenia; mild improvement Management per hematology oncology Renal biopsy tomorrow --UTI; continue empiric antibiotics Follow cultures --History of schizophrenia/ADHD Continue current management, psych evaluation if needed --DVT prophylaxis; SCD, no pharmacological anticoagulation secondary to thrombocytopenia Plan of care reviewed with the patient and his nurse Brief History: The patient is a 23 Yo male with hx significant for Bipolar disorder, Schizophrenia and and Thrombocytopenia who was sent by Dr. Pressley for evaluation of tachycardia, chest pain, back pain and abdominal pain. Recently he was treated for JOSE and Nephrotic syndrome at [facility]. Workup included Hepatitis panel, HIV and LUBA were negative. He was evaluated for thrombocytopenia and had bone marrow biopsy. Patient had few episodes of vomiting yesterday. Urine positive for significant proteinurea. Status post lymph node biopsy, pending pathology, renal biopsy tomorrow History Interval history: Patient seen and examined medical records reviewed No new events reported by the nursing Patient is scheduled for a kidney biopsy tomorrow No new complaints Hospitalist Physical - Constitutional Vitals: Temp Pulse Resp BP Pulse Ox 97.9 F 92 H 17 115/72 86 09/24/18 23:01 09/25/18 11:13 09/24/18 23:17 09/25/18 11:13 09/24/18 23:01 General appearance: Present: no acute distress, well-nourished - EENT Eyes: Present: PERRL, EOM intact - Neck Neck: Present: supple, normal ROM - Respiratory Respiratory effort: normal Respiratory: bilateral: diminished, negative: rales, rhonchi, wheezing - Cardiovascular Rhythm: regular Heart Sounds: Present: S1 & S2 - Extremities Extremities: no ischemia, No edema - Abdominal General gastrointestinal: soft, non-tender, non-distended, normal bowel sounds - Integumentary Integumentary: Present: clear, warm - Psychiatric Psychiatric: appropriate mood/affect, cooperative - Neurologic Neurologic: CNII-XII intact, moves all extremities Results - Labs CBC & Chem 7: 09/25/18 08:32 09/25/18 08:32 Labs: Laboratory Last Values WBC 6.1 K/mm3 (4.5-11.0) 09/25/18 08:32 RBC 4.90 M/mm3 (3.65-5.03) 09/25/18 08:32 Hgb 13.2 gm/dl (11.8-15.2) 09/25/18 08:32 Hct 39.5 % (35.5-45.6) 09/25/18 08:32 MCV 81 fl (84-94) L 09/25/18 08:32 MCH 27 pg (28-32) L 09/25/18 08:32 MCHC 33 % (32-34) 09/25/18 08:32 RDW 15.7 % (13.2-15.2) H 09/25/18 08:32 Plt Count 64 K/mm3 (140-440) L 09/25/18 08:32 Lymph % (Auto) Lens Marker 09/24/18 06:43 [place] % (Auto) Lens Marker 09/25/18 08:32 Add Manual Diff Complete 09/25/18 08:32 Total Counted 100 09/25/18 08:32 Seg Neutrophils % Lens Marker 09/25/18 08:32 Seg Neuts % (Manual) 55.0 % (40.0-70.0) 09/25/18 08:32 0 % 09/25/18 08:32 32.0 % (13.4-35.0) 09/25/18 08:32 Reactive Lymphs % (Man) 0 % 09/25/18 08:32 13.0 % (0.0-7.3) H 09/25/18 08:32 0 % (0.0-4.3) 09/25/18 08:32 0 % (0.0-1.8) 09/25/18 08:32 0 % 09/25/18 08:32 0 % 09/25/18 08:32 0 % 09/25/18 08:32 0 % 09/25/18 08:32 Nucleated RBC % Not Reportable 09/25/18 08:32 Seg Neutrophils # Man 3.4 K/mm3 (1.8-7.7) 09/25/18 08:32 Band Neutrophils # 0.0 K/mm3 09/25/18 08:32 2.0 K/mm3 (1.2-5.4) 09/25/18 08:32 Abs React Lymphs (Man) 0.0 K/mm3 09/25/18 08:32 0.8 K/mm3 (0.0-0.8) 09/25/18 08:32 0.0 K/mm3 (0.0-0.4) 09/25/18 08:32 0.0 K/mm3 (0.0-0.1) 09/25/18 08:32 0.0 K/mm3 09/25/18 08:32 0.0 K/mm3 09/25/18 08:32 0.0 K/mm3 09/25/18 08:32 Blast Cells # 0.0 K/mm3 09/25/18 08:32 WBC Morphology Not Reportable 09/25/18 08:32 WBC Morphology TNR 09/25/18 08:32 Hypersegmented Neuts Not Reportable 09/25/18 08:32 Hyposegmented Neuts Not Reportable 09/25/18 08:32 Hypogranular Neuts Not Reportable 09/25/18 08:32 Not Reportable 09/25/18 08:32 Not Reportable 09/25/18 08:32 Not Reportable 09/25/18 08:32 Not Reportable 09/25/18 08:32 Not Reportable 09/25/18 08:32 Not Reportable 09/25/18 08:32 Appears decreased 09/25/18 08:32 Not Reportable 09/25/18 08:32 Plt Clumps, EDTA Not Reportable 09/25/18 08:32 Not Reportable 09/25/18 08:32 Not Reportable 09/25/18 08:32 Not Reportable 09/25/18 08:32 Plt Morphology Comment Not Reportable 09/25/18 08:32 RBC Morphology Not Reportable 09/25/18 08:32 Dimorphic RBCs Not Reportable 09/25/18 08:32 Not Reportable 09/25/18 08:32 Not Reportable 09/25/18 08:32 Not Reportable 09/25/18 08:32 Not Reportable 09/25/18 08:32 Not Reportable 09/25/18 08:32 Not Reportable 09/25/18 08:32 Not Reportable 09/25/18 08:32 Not Reportable 09/25/18 08:32 Not Reportable 09/25/18 08:32 Not Reportable 09/25/18 08:32 Not Reportable 09/25/18 08:32 Few 09/25/18 08:32 Not Reportable 09/25/18 08:32 Not Reportable 09/25/18 08:32 Not Reportable 09/25/18 08:32 Not Reportable 09/25/18 08:32 Not Reportable 09/25/18 08:32 Not Reportable 09/25/18 08:32 Not Reportable 09/25/18 08:32 Acanthocytes (Spur) Not Reportable 09/25/18 08:32 Rouleaux Not Reportable 09/25/18 08:32 Not Reportable 09/25/18 08:32 Not Reportable 09/25/18 08:32 Not Reportable 09/25/18 08:32 Not Reportable 09/25/18 08:32 Hem Pathologist Commnt No 09/25/18 08:32 PT 12.9 Sec. (12.2-14.9) 09/21/18 21:45 INR 0.92 (0.87-1.13) 09/21/18 21:45 APTT 33.6 Sec. (24.2-36.6) 09/21/18 21:45 Sodium 140 mmol/L (137-145) 09/25/18 08:32 Potassium 4.5 mmol/L (3.6-5.0) 09/25/18 08:32 Chloride 107.3 mmol/L (98-107) H 09/25/18 08:32 Carbon Dioxide 27 mmol/L (22-30) 09/25/18 08:32 10 mmol/L 09/25/18 08:32 BUN 11 mg/dL (9-20) 09/25/18 08:32 0.7 mg/dL (0.8-1.5) L 09/25/18 08:32 Estimated GFR > 60 ml/min 09/25/18 08:32 16 % 09/25/18 08:32 Glucose 98 mg/dL (75-100) 09/25/18 08:32 Calcium 7.0 mg/dL (8.4-10.2) L 09/25/18 08:32 Magnesium 1.40 mg/dL (1.7-2.3) L 09/25/18 08:32 < 0.20 mg/dL (0.1-1.2) 09/21/18 16:41 < 0.2 mg/dL (0-0.2) 09/21/18 16:41 0.0 mg/dL 09/21/18 16:41 AST 71 units/L (5-40) H 09/21/18 16:41 ALT 44 units/L (7-56) 09/21/18 16:41 183 units/L (35-129) H 09/21/18 16:41 4.5 g/dL (6.3-8.2) L 09/21/18 16:41 0.8 g/dL (3.9-5) L 09/21/18 16:41 0.2 % 09/21/18 16:41 Amylase 124 units/L (27-131) 09/21/18 16:41 38 units/L (13-60) 09/21/18 16:41 Yellow (Yellow) 09/21/18 20:49 Slightly-cloudy (Clear) 09/21/18 20:49 6.0 (5.0-7.0) 09/21/18 20:49 Ur Specific [place]unction 1.027 (1.003-1.030) 09/21/18 20:49 >500 mg/dL (Negative) 09/21/18 20:49 50 mg/dL (Negative) 09/21/18 20:49 Neg mg/dL (Negative) 09/21/18 20:49 Neg (Negative) 09/21/18 20:49 Neg (Negative) 09/21/18 20:49 Neg (Negative) 09/21/18 20:49 < 2.0 mg/dL (<2.0) 09/21/18 20:49 Ur Leukocyte Esterase Neg (Negative) 09/21/18 20:49 9.0 /HPF (0.0-6.0) H 09/21/18 20:49 12.0 /HPF (0.0-6.0) 09/21/18 20:49 Hyaline Casts 15 /LPF 09/21/18 20:49 Few /HPF 09/21/18 20:49 42.0 mg/dL (0.1-20.0) H 09/23/18 13:40 Protein/Creatinin Ratio 12.10 09/23/18 13:40 55 mmol/L 09/23/18 13:40 508 mg/dL (5-11.8) H 09/23/18 13:40 Active Medications - Current Medications Current Medications: Generic Name Dose Route Start Last Admin Trade Name Freq PRN Reason Stop Dose Admin Acetaminophen 650 mg 09/21/18 22:58 Tylenol PO Q4H PRN Pain MILD(1-3)/Fever >100.5/[place]ON Furosemide 20 mg 09/22/18 06:00 09/25/18 05:48 Lasix IV 20 mg QDAY@0600 BRADEN Administration Magnesium Sulfate 3 gm/ Sodium 106 mls @ 35.333 mls/hr 09/25/18 11:20 Chloride IV 09/25/18 14:19 ONCE ONE Levofloxacin 500 mg 09/22/18 06:00 09/25/18 05:48 Levaquin PO 500 mg Q24H BRADEN Administration Lisinopril 10 mg 09/22/18 10:00 09/25/18 11:13 Zestril PO 10 mg QDAY BRADEN Administration Morphine Sulfate 2 mg 09/21/18 22:58 09/24/18 22:47 Morphine IV 2 mg Q4H PRN Administration Pain, Moderate (4-6) Ondansetron HCl 4 mg 09/21/18 22:58 09/24/18 22:48 Zofran IV 4 mg Q4H PRN Administration Nausea And Vomiting Pantoprazole Sodium 40 mg 09/23/18 16:00 09/25/18 11:13 Protonix PO 40 mg QDAY BRADEN Administration Prednisone 60 mg 09/24/18 15:00 09/25/18 11:12 Deltasone PO 60 mg QDAY BRADEN Administration Sodium Chloride 10 ml 09/22/18 10:00 09/25/18 11:14 Sodium Chloride Flush Syringe 10 Ml IV 10 ml BID BRADEN Administration Sodium Chloride 10 ml 09/21/18 22:58 Sodium Chloride Flush Syringe 10 Ml IV PRN PRN LINE FLUSH
[2018-09-25] MEDS: MORPHINE IV PRN ×3 (13:07→22:45)
[2018-09-25] MEDS: ZOFRAN IV PRN ×2 (18:21→22:45)
[2018-09-26] MEDS: LASIX IV SCH (06:22)
[2018-09-26 06:28] LABS: Hematocrit 38.4 % (35.5-45.6); Hemoglobin 12.6 gm/dl (11.8-15.2); Mean Corpuscular HGB Conc 33 % (32-34); Mean Corpuscular Volume 82 fl (84-94); Red Blood Count 4.69 M/mm3 (3.65-5.03); Red Cell Distribution Width 15.4 % (13.2-15.2)
[2018-09-26] MEDS: LEVAQUIN PO SCH ×2 (06:31→13:06)
[2018-09-26 06:36] LABS: Platelet Count 73 K/mm3 (140-440)
--- NOTE | 2018-09-26 07:11 | Hem/Onc Progress Note ---
Assessment and Plan 1. Thrombocytopenia. In 10/2017, the patient's platelets were normal. This may be an immune phenomena. An investigation for deficiency workup and bone marrow biopsy was done at [facility], adequate megakaryocytes were present. 2. There is an option of a steroid trial, however, as the platelets were more than 50, none was done. Also, it appears he is having an immune phenomenon in the kidneys. I had discussed with the manager quality regarding the option of a steroid trial versus waiting for a biopsy. For biopsy, the patient may need a platelet transfusion. 3. Facial swelling, likely secondary to proteinuria. Nephrology following. At one time in the past, creatinine was 5, now it is improved. 4. Psychiatric issues. The patient was on monthly Invega injections. This causes a low white cell count, but not much to the platelets. 5. Status post gastrointestinal evaluation with [facility], EGD. 6. Abnormal LFTs. 7. Lymphadenopathy based on CT scan. bx done 8. We will follow the platelet count LN bx done rt groin - path pending pt was on psych meds - Invega inj q month by psych - if needed - this may be given 09/26 - prednisone 60 mg trial - plt >70 adequate for kidney bx - if procedure physicain prefers - pt can get transfusion of plt - Patient Problems (1) Thrombocytopenia Current Visit: Yes Status: Acute Subjective Date of service: 09/26/18 Principal diagnosis: low plt Interval history: on steroid - no bleeding Objective - Constitutional Vitals: Last Vital Signs Temp 97.3 F L 09/26/18 06:25 Pulse 72 09/26/18 06:25 Resp 20 09/26/18 06:25 BP 113/84 09/26/18 06:25 Pulse Ox 100 09/26/18 06:25 Pain Intensity (0-10): denies any pain General appearance: no acute distress Performance status: 2- selfcare, ambulatory - EENT Eyes: EOM intact ENT: hearing intact, clear oral mucosa - Neck Neck: normal ROM - Respiratory Respiratory effort: Positive: normal Respiratory: bilateral: CTA - Cardiovascular Heart Sounds: Present: S1 & S2 Extremities: No edema, normal temperature - Gastrointestinal General gastrointestinal: Present: soft, non-tender Rectal Exam: deferred - Genitourinary Male genitourinary: Present: deferred - Integumentary Integumentary: warm - Musculoskeletal Musculoskeletal: strength equal bilaterally - Neurologic Neurologic: moves all extremities - Labs Lab Results: Laboratory Results - last 24 hr 09/25/18 09/25/18 09/25/18 08:32 08:32 08:32 WBC 6.1 RBC 4.90 Hgb 13.2 Hct 39.5 MCV 81 L MCH 27 L MCHC 33 RDW 15.7 H Plt Count 64 L [place] % (Auto) Outsole Flexer Add Manual Diff Complete Total Counted 100 Seg Neutrophils % Outsole Flexer Seg Neuts % (Manual) 55.0 Band Neutrophils % 0 Lymphocytes % (Manual) 32.0 Reactive Lymphs % (Man) 0 Monocytes % (Manual) 13.0 H Eosinophils % (Manual) 0 Basophils % (Manual) 0 Metamyelocytes % 0 Myelocytes % 0 Promyelocytes % 0 Blast Cells % 0 Nucleated RBC % Not Reportable Seg Neutrophils # Man 3.4 Band Neutrophils # 0.0 Lymphocytes # (Manual) 2.0 Abs React Lymphs (Man) 0.0 Monocytes # (Manual) 0.8 Eosinophils # (Manual) 0.0 Basophils # (Manual) 0.0 Metamyelocytes # 0.0 Myelocytes # 0.0 Promyelocytes # 0.0 Blast Cells # 0.0 WBC Morphology Not Reportable TNR Hypersegmented Neuts Not Reportable Hyposegmented Neuts Not Reportable Hypogranular Neuts Not Reportable Smudge Cells Not Reportable Toxic Granulation Not Reportable Toxic Vacuolation Not Reportable Dohle Bodies Not Reportable Pelger-Huet Anomaly Not Reportable Domingo Rods Not Reportable Platelet Estimate Appears decreased Clumped Platelets Not Reportable Plt Clumps, EDTA Not Reportable Large Platelets Not Reportable Giant Platelets Not Reportable Platelet Satelliting Not Reportable Plt Morphology Comment Not Reportable RBC Morphology Not Reportable Dimorphic RBCs Not Reportable Polychromasia Not Reportable Hypochromasia Not Reportable Poikilocytosis Not Reportable Anisocytosis Not Reportable Microcytosis Not Reportable Macrocytosis Not Reportable Spherocytes Not Reportable Pappenheimer Bodies Not Reportable Sickle Cells Not Reportable Target Cells Not Reportable Tear Drop Cells Not Reportable Ovalocytes Few Helmet Cells Not Reportable [place] Bodies Not Reportable [place] Rings Not Reportable Yvette Cells Not Reportable Bite Cells Not Reportable Crenated Cell Not Reportable Elliptocytes Not Reportable Acanthocytes (Spur) Not Reportable Rouleaux Not Reportable Hemoglobin C Crystals Not Reportable Schistocytes Not Reportable Malaria parasites Not Reportable Ede Bodies Not Reportable Hem Pathologist Commnt No Sodium 140 Potassium 4.5 Chloride 107.3 H Carbon Dioxide 27 Anion Gap 10 BUN 11 Creatinine 0.7 L Estimated GFR > 60 BUN/Creatinine Ratio 16 Glucose 98 Calcium 7.0 L Magnesium 1.40 L 09/26/18 09/26/18 06:07 06:07 WBC 6.2 RBC 4.69 Hgb 12.6 Hct 38.4 MCV 82 L MCH 27 L MCHC 33 RDW 15.4 H Plt Count 73 L [place] % (Auto) Outsole Flexer Add Manual Diff Total Counted Seg Neutrophils % Seg Neuts % (Manual) Band Neutrophils % Lymphocytes % (Manual) Reactive Lymphs % (Man) Monocytes % (Manual) Eosinophils % (Manual) Basophils % (Manual) Metamyelocytes % Myelocytes % Promyelocytes % Blast Cells % Nucleated RBC % Seg Neutrophils # Man Band Neutrophils # Lymphocytes # (Manual) Abs React Lymphs (Man) Monocytes # (Manual) Eosinophils # (Manual) Basophils # (Manual) Metamyelocytes # Myelocytes # Promyelocytes # Blast Cells # WBC Morphology Hypersegmented Neuts Hyposegmented Neuts Hypogranular Neuts Smudge Cells Toxic Granulation Toxic Vacuolation Dohle Bodies Pelger-Huet Anomaly Domingo Rods Platelet Estimate Clumped Platelets Plt Clumps, EDTA Large Platelets Giant Platelets Platelet Satelliting Plt Morphology Comment RBC Morphology Dimorphic RBCs Polychromasia Hypochromasia Poikilocytosis Anisocytosis Microcytosis Macrocytosis Spherocytes Pappenheimer Bodies Sickle Cells Target Cells Tear Drop Cells Ovalocytes Helmet Cells [place] Bodies [place] Rings Yvette Cells Bite Cells Crenated Cell Elliptocytes Acanthocytes (Spur) Rouleaux Hemoglobin C Crystals Schistocytes Malaria parasites Ede Bodies Hem Pathologist Commnt Sodium Potassium Chloride Carbon Dioxide Anion Gap BUN Creatinine Estimated GFR BUN/Creatinine Ratio Glucose Calcium Magnesium 1.90 Medications & Allergies - Medications Allergies/Adverse Reactions: Allergies No Known Allergies Allergy (Verified 09/21/18 15:17) Home Medications: Home Medications Medication Instructions Recorded Confirmed Last Taken Type Dicyclomine [Bentyl] 20 mg PO QID PRN #20 tablet 02/10/18 09/22/18 Unknown Rx Promethazine [Phenergan TAB] 25 mg PO Q6HR PRN #20 tab 02/10/18 09/22/18 Unknown Rx traMADol [Ultram] 50 mg PO Q6HR PRN #20 tablet 04/23/18 09/22/18 Unknown Rx Guaifenesin/Pseudoephedrne HCl 1 each PO BID PRN #20 tab.er.12h 04/24/18 09/22/18 Unknown Rx [Mucinex D ER 600-60 mg Tablet] Ibuprofen 800 mg PO TID PRN #30 tablet 04/24/18 09/22/18 Unknown Rx Active Medications: Generic Name Dose Route Start Last Admin Trade Name Freq PRN Reason Stop Dose Admin Acetaminophen 650 mg 09/21/18 22:58 Tylenol PO Q4H PRN Pain MILD(1-3)/Fever >100.5/CORDON Furosemide 20 mg 09/22/18 06:00 09/26/18 06:22 Lasix IV 20 mg QDAY@0600 BRADEN Administration Levofloxacin 500 mg 09/22/18 06:00 09/26/18 06:31 Levaquin PO Not Given Q24H BRADEN Lisinopril 10 mg 09/22/18 10:00 09/25/18 11:13 Zestril PO 10 mg QDAY BRADEN Administration Morphine Sulfate 2 mg 09/21/18 22:58 09/25/18 22:45 Morphine IV 2 mg Q4H PRN Administration Pain, Moderate (4-6) Ondansetron HCl 4 mg 09/21/18 22:58 09/25/18 22:45 Zofran IV 4 mg Q4H PRN Administration Nausea And Vomiting Pantoprazole Sodium 40 mg 09/23/18 16:00 09/25/18 11:13 Protonix PO 40 mg QDAY BRADEN Administration Prednisone 60 mg 09/24/18 15:00 09/25/18 11:12 Deltasone PO 60 mg QDAY BRADEN Administration Sodium Chloride 10 ml 09/22/18 10:00 09/25/18 21:36 Sodium Chloride Flush Syringe 10 Ml IV 10 ml BID BRADEN Administration Sodium Chloride 10 ml 09/21/18 22:58 Sodium Chloride Flush Syringe 10 Ml IV PRN PRN LINE FLUSH
--- NOTE | 2018-09-26 08:02 | Progress Note ---
Assessment and Plan 1. Nephrotic syndrome: Possible diagnoses includes FSGS and Minimal change. Unlikely immune mediated GN. Unable to do Kidney biopsy due to low platelet count. Will do kidney biopsy as outpatient. Continue Lisinopril. 2. FEN: Volume overload, IV Lasix. Monitor lytes. 3. Thrombocytopenia: Followed by Heme-Onc. Platelet count is improving. 4. Lymphadenopathy: S/p needle biopsy. 5. B/l pleural effusion and Ascites: Likely due to Nephrotic syndrome. 6. Schizophrenia. Subjective Date of service: 09/26/18 Principal diagnosis: low plt Interval history: Patient was seen and examined at the bedside. Doing ok. No new complaint. Objective - Vital Signs Vital signs: Vital Signs - 12hr 09/25/18 09/25/18 09/25/18 22:00 22:45 22:48 Temperature 98.1 F Pulse Rate 95 H Respiratory 17 20 Rate Respiratory 17 Rate [abdomen] Blood Pressure 126/86 O2 Sat by Pulse 99 99 Oximetry 09/25/18 09/26/18 23:15 06:25 Temperature 97.3 F L Pulse Rate 72 Respiratory 18 20 Rate Respiratory Rate [abdomen] Blood Pressure 113/84 O2 Sat by Pulse 100 Oximetry - General Appearance General appearance: well-developed, well-nourished, appears stated age, other (not in distress) EENT: ATNC, PERRL, mucous membranes moist, hearing intact, vision intact Neck: supple Respiratory: Present: Clear to Ascultation Cardiology: regular, S1S2, no murmurs Gastrointestinal: normoactive bowel sounds, no tenderness, no distended Integumentary: no rash, warm and dry Neurologic: no focal deficit, no asterixis, alert and oriented x3 Musculoskeletal: other (no edema) Psychiatric: cooperative - Lab 09/26/18 06:07 09/25/18 08:32 Most recent lab results Calcium 7.0 mg/dL (8.4-10.2) L 09/25/18 08:32 Magnesium 1.90 mg/dL (1.7-2.3) 09/26/18 06:07 42.0 mg/dL (0.1-20.0) H 09/23/18 13:40 55 mmol/L 09/23/18 13:40 508 mg/dL (5-11.8) H 09/23/18 13:40 Medications & Allergies - Medications Allergies/Adverse Reactions: Allergies No Known Allergies Allergy (Verified 09/21/18 15:17) Home Medications: Home Medications Medication Instructions Recorded Confirmed Last Taken Type Lisinopril [Zestril TAB] 10 mg PO QDAY #30 tablet 09/26/18 Unknown Rx predniSONE [Deltasone] 2 tab PO DAILY #20 tablet 09/26/18 Unknown Rx Active Medications: Generic Name Dose Route Start Last Admin Trade Name Freq PRN Reason Stop Dose Admin Acetaminophen 650 mg 09/21/18 22:58 Tylenol PO Q4H PRN Pain MILD(1-3)/Fever >100.5/CORDON Furosemide 20 mg 09/22/18 06:00 09/26/18 06:22 Lasix IV 20 mg QDAY@0600 BRADEN Administration Levofloxacin 500 mg 09/22/18 06:00 09/26/18 06:31 Levaquin PO Not Given Q24H BRADEN Lisinopril 10 mg 09/22/18 10:00 09/25/18 11:13 Zestril PO 10 mg QDAY BRADEN Administration Morphine Sulfate 2 mg 09/21/18 22:58 09/25/18 22:45 Morphine IV 2 mg Q4H PRN Administration Pain, Moderate (4-6) Ondansetron HCl 4 mg 09/21/18 22:58 09/25/18 22:45 Zofran IV 4 mg Q4H PRN Administration Nausea And Vomiting Pantoprazole Sodium 40 mg 09/23/18 16:00 09/25/18 11:13 Protonix PO 40 mg QDAY BRADEN Administration Prednisone 60 mg 09/24/18 15:00 09/25/18 11:12 Deltasone PO 60 mg QDAY BRADEN Administration Sodium Chloride 10 ml 09/22/18 10:00 09/25/18 21:36 Sodium Chloride Flush Syringe 10 Ml IV 10 ml BID BRADEN Administration Sodium Chloride 10 ml 09/21/18 22:58 Sodium Chloride Flush Syringe 10 Ml IV PRN PRN LINE FLUSH
[2018-09-26] MEDS ORDERED: NACL 0.9% 500 ML 0 ML ONE (08:51)
[2018-09-26] MEDS ORDERED: VERSED IV ONE (09:00)
[2018-09-26] MEDS ORDERED: SUBLIMAZE IV ONE (09:00)
[2018-09-26 09:47] LABS: Basophils % (Manual) 0 % (0.0-1.8); Eosinophils % (Manual) 0 % (0.0-4.3); Total Cells Counted 100
[2018-09-26 09:49] LABS: Anisocytosis Few; Platelet Estimate Consistent w Auto
[2018-09-26 12:08] VITALS: BP 129/90
[2018-09-26] MEDS: ZESTRIL PO SCH (12:59)
[2018-09-26] MEDS: DELTASONE PO SCH (12:59)
[2018-09-26] MEDS: PROTONIX PO SCH (12:59)
[2018-09-26] MEDS: SODIUM CHLORIDE FLUSH SYRINGE 10 ML IV SCH (13:01)
--- NOTE | 2018-09-26 13:01 | Discharge Summary ---
Providers - Providers Date of Admission: 09/21/18 22:32 Date of discharge: 09/26/18 Attending physician: RANDY LYLE 09/21/18 22:58 Consult to Physician [CONS] Routine Comment: Consulting Provider: SARA PRESSLEY Physician Instructions: Reason For Exam: ascites 09/22/18 07:20 Consult to Physician [CONS] Routine Comment: Consulting Provider: GIANNA STORY Physician Instructions: Reason For Exam: proteinuria 09/22/18 07:28 Consult to Physician [CONS] Routine Comment: pl evaluate for LN bx Consulting Provider: CLEM RUFFIN Physician Instructions: low plt - BMBX negative, LN and proteinuria Reason For Exam: Lymphadenopathy Primary care physician: JEANMARIE COKER Hospitalization Reason for admission: Chest pain,thrombocytopenia Condition: Stable Pertinent studies: abd us abd ct CTA chest Needle biopsy lymph node Procedures: Rt inguinal node biopsy Hospital course: 23 Yo male patient with hx significant for Bipolar disorder, Schizophrenia and and Thrombocytopenia was sent by Dr. Pressley for evaluation of tachycardia, chest pain, back pain and abdominal pain. Recently he was treated for JOSE and Nephrotic syndrome at [facility] [place] [facility]. Workup included Hepatitis panel, HIV and LUBA were negative. He was evaluated for thrombocytopenia and had bone marrow biopsy.Urine positive for significant proteinurea. IR consulted s/p lymphnode biopsy. Patient evaluated by nephrology and hem/onc.Unable to get renal biopsy due to thrombocytopenia, will f/u out pt for biopsy as needed. Today patient feels better,no new complaints,vital signs stable,physical exam unremarkable Cleared by hematology and nephrology for discharge Stable at discharge Discharge Diagnosis: --Ascites due to proteinurea :Supportive care --Lymphadenopathy; s/p biopsy Follow histopathology, hematology as out patient --Thrombocytopenia; mild improvement Management per hematology oncology --Nephrotic Syndrome: nephrology following,on steroids Renal biopsy out patient --UTI; continue empiric antibiotics Follow cultures --History of schizophrenia/ADHD Continue current management, psych evaluation if needed --DVT prophylaxis; SCD, no pharmacological anticoagulation secondary to thrombocytopenia Plan of care reviewed with the patient and his nurse Stable at discharge Disposition: - TO HOME OR SELFCARE Time spent for discharge: 32 min Core Measure Documentation - Palliative Care Palliative Care/ Comfort Measures: Not Applicable - Core Measures Any of the following diagnoses?: none Exam - Constitutional Vitals: Temp Pulse Resp BP Pulse Ox 97.6 F 100 H 20 129/90 94 09/26/18 12:05 09/26/18 12:05 09/26/18 12:05 09/26/18 12:05 09/26/18 12:05 General appearance: Present: no acute distress, well-nourished - EENT Eyes: Present: PERRL, EOM intact - Neck Neck: Present: supple, normal ROM - Respiratory Respiratory effort: normal Respiratory: bilateral: diminished, negative: rales, rhonchi, wheezing - Cardiovascular Rhythm: regular Heart Sounds: Present: S1 & S2 - Extremities Extremities: no ischemia, No edema - Abdominal General gastrointestinal: Present: soft, non-tender, non-distended, normal bowel sounds - Integumentary Integumentary: Present: clear, warm - Musculoskeletal Musculoskeletal: strength equal bilaterally, generalized weakness - Psychiatric Psychiatric: appropriate mood/affect, cooperative - Neurologic Neurologic: CNII-XII intact, moves all extremities Plan Activity: no restrictions Diet: regular Follow up with: JEANMARIE COKER MD [Primary Care Provider] - 7 Days SARA PRESSLEY MD [Staff Physician] - 7 Days GIANNA STORY MD [Staff Physician] - 7 Days Prescriptions: RX: predniSONE [Deltasone] 2 tab PO DAILY #20 tablet RX: Lisinopril [Zestril TAB] 10 mg PO QDAY #30 tablet
[2018-09-27 18:01] LABS: Myeloperoxidase Antibody <1.0 AI (<1.0)
[2018-09-28 22:50] LABS: Albumin 1.2 g/dL (3.8-4.8); Gamma Globulin 1.3 g/dL (0.8-1.7)
--- NOTE | 2018-10-06 16:26 | Ultrasound Report ---
EXAM: US guided lymph node biopsy CLINICAL INDICATION: Lymphadenopathy of unknown origin DATE: 09/22/2018 PATTERN GENERATOR OPERATOR: CLEM MAGALLANES MD MEDICATIONS: Local anesthetic PROCEDURE: Following an explanation of the risks, benefits and alternatives; written informed consent was obtained. The patient was brought to the special procedures suite and placed in supine position. Ultrasound was performed which demonstrated adequate window for ultrasound-guided biopsy. The right inguinal area was identified as the best area for a biopsy. The patient was prepped and draped in a sterile fashion. After determining the appropriate site, the skin was infiltrated with lidocaine and a 15 gauge coaxial needle was inserted adjacent to the lymph node under ultrasound guidance. Two 16 gauge biopsies were obtained. Adequate tissue was obtained. One biopsy was placed in each of the two provided containers. Final US was obtained. Sterile bandage was applied. The patient tolerated the procedure well. There were no immediate postprocedural complications. FINDINGS: 1. Initial ultrasound demonstrates large abnormal right inguinal lymphadenopathy. 2. Ultrasound demonstrates the coaxial 15 gauge coaxial needle was placed adjacent to the lymph node. 3. There is a satisfactory window for ultrasound guided biopsy. 4. A total of 2 16 gauge core biopsies were obtained. IMPRESSION: Successful ultrasound guided focal lymph node biopsy of the right inguinal region.
== END 2018-09-26 16:00 | disposition home or self-care (01) | DRG 803 ==
LOC: ED 15:13 → 3A 22:32
PROVIDERS: ADMIT Internal Medicine; ATTEND Internal Medicine
PROC: 07BH3ZX Excision of Right Inguinal Lymphatic, Percutaneous Approach, Diagnostic (ICD-10-PCS; principal; 2018-09-22)
DX: R59.1 Generalized enlarged lymph nodes (principal); N04.9 Nephrotic syndrome with unspecified morphologic changes; J90 Pleural effusion, not elsewhere classified; R18.8 Other ascites; N39.0 Urinary tract infection, site not specified; D69.6 Thrombocytopenia, unspecified; F20.9 Schizophrenia, unspecified; F31.9 Bipolar disorder, unspecified; F17.210 Nicotine dependence, cigarettes, uncomplicated; F12.90 Cannabis use, unspecified, uncomplicated; F15.90 Other stimulant use, unspecified, uncomplicated; F14.90 Cocaine use, unspecified, uncomplicated; F90.9 Attention-deficit hyperactivity disorder, unspecified type; E83.42 Hypomagnesemia; R80.9 Proteinuria, unspecified; Z82.49 Family history of ischemic heart disease and other diseases of the circulatory system; Z72.89 Other problems related to lifestyle
CPT/HCPCS: 36415; 38505; 71275; 74176; 76705; 76942; 80048; 80076; 81001; 82150; 82570; 83690; 83735; 84156; 84165; 84300; 85007; 85025; 85610; 85730; 86021; 86334; 87086; 87116; 88184; 88185; 88305; 88341; 88342; 89050; 90471; 93005; 93010; 96374; 96375; 99406; G0378; J1940; J2250; J2270; J2405; J3010; J3475; J7030; J7040; J7512; Q9967

== ENCOUNTER 2018-10-09 22:17 | Emergency (ER) | payer MEDICAID ==
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
[2018-10-10 02:48] VITALS: BP 122/83
--- NOTE | 2018-10-10 02:59 | XRay Report ---
PROCEDURE: XR KNEE 3V LT TECHNIQUE: Left knee radiographs, AP, lateral, and oblique views. HISTORY: left knee effusion, hx of knee surgery COMPARISONS: None FINDINGS: Fracture (s) and/or Dislocation(s): There is no evidence of an acute fracture. The patient has had pr evious internal fixation of the distal femur with an intramedullary daniel identified. Alignment: Normal Joint space(s): Mild narrowing of joint spaces. Mild spur formation off the osseous structures. Soft tissues: Normal IMPRESSION: There is no evidence of an acute fracture. Mild arthritis. Previous internal fixation of the distal f emur with an intramedullary daniel noted. This document is electronically signed by Dianne Cabrera DO., Oct 10 2018 02:57:55 AM ET
[2018-10-10] MEDS ORDERED: IBUPROFEN PO ONE (03:24)
== END 2018-10-10 04:01 | disposition home or self-care (01) ==
LOC: ED 22:17
DX: M13.862 Other specified arthritis, left knee (principal); M79.604 Pain in right leg; J45.909 Unspecified asthma, uncomplicated
CPT/HCPCS: 36415; 80053; 81001; 83690; 85007; 85025; 93005; 93010; 99283

== ENCOUNTER 2018-10-10 16:32 | Emergency (ER) | payer MEDICAID ==
[2018-10-10 16:45] VITALS: BP 134/72
--- NOTE | 2018-10-10 16:48 | Emergency Department Report ---
Chief Complaint: Abdominal Pain Stated Complaint: STOMACH PAIN Time Seen by Provider: 10/10/18 16:44 - HPI History of Present Illness: This is a 23 y.o. male that presents to the ER with abdominal pain x 1 month. Patient reports pain as diffuse and increasing for a few days. No PMH Patient states he was drinking more to help with pain but symptoms are worse. No N/V/D - Exam Vital Signs: Vital Signs 10/10/18 16:44 Temperature 98.8 F Pulse Rate 122 H Respiratory 16 Rate Blood Pressure 134/72 [Right] O2 Sat by Pulse 99 Oximetry MSE screening note: Focused history and physical exam performed. Due to findings the following was ordered: Labs and CT ED Disposition for MSE Condition: Stable
[2018-10-10 17:24] LABS: Hematocrit 32.9 % (35.5-45.6); Hemoglobin 10.9 gm/dl (11.8-15.2); Mean Corpuscular HGB Conc 33 % (32-34); Mean Corpuscular Volume 82 fl (84-94); Platelet Count 142 K/mm3 (140-440); Red Blood Count 4.01 M/mm3 (3.65-5.03); Red Cell Distribution Width 15.6 % (13.2-15.2)
[2018-10-10 17:29] LABS: Bilirubin,Urine NEG (Negative); Blood,Urine NEG (Negative); Color,Urine Yellow (Yellow); Mucus,Urine FEW /HPF; Urobilinogen,Urine < 2.0 mg/dL (<2.0)
[2018-10-10 17:32] LABS: Protein,Urine >500 mg/dL (Negative)
[2018-10-10 17:52] LABS: Alanine Aminotransferase 64 units/L (7-56); Albumin 1.5 g/dL (3.9-5); BUN/Creatinine Ratio 7; Blood Urea Nitrogen 4 mg/dL (9-20); Calcium 7.1 mg/dL (8.4-10.2); Hemolysis Index 8
[2018-10-10 19:02] LABS: Basophils % (Manual) 0 % (0.0-1.8); Eosinophils % (Manual) 0 % (0.0-4.3); Total Cells Counted 100
[2018-10-10 19:03] LABS: Anisocytosis Few; Platelet Estimate Consistent w Auto
== END 2018-10-10 17:09 | disposition left against medical advice (07) ==
LOC: ED 16:32
DX: R10.9 Unspecified abdominal pain (principal); Z53.21 Procedure and treatment not carried out due to patient leaving prior to being seen by health care provider
CPT/HCPCS: 36415; 80053; 81001; 83690; 85007; 85025

== ENCOUNTER 2018-10-11 18:42 | Emergency (ER) | payer MEDICAID | END 2018-10-11 18:43 | disposition left against medical advice (07) | LOC: ED 18:42 | DX: R10.9 Unspecified abdominal pain (principal); Z53.21 Procedure and treatment not carried out due to patient leaving prior to being seen by health care provider ==

== ENCOUNTER 2018-10-13 12:47 | Emergency (ER) | payer MEDICAID ==
[2018-10-13 13:12] VITALS: BP 139/85
--- NOTE | 2018-10-13 13:22 | Event Note ---
ED Screening Note ED Screening Note: Patient is a 23-year-old male comes to the ER because he is "sick." This is the patient's fifth ER visit this month. Patient is disheveled and unkempt. Patient has a history of paranoid schizophrenia and bipolar. He states that he gets InVega once a month. Patient states that he is having thoughts of harming himself. He would do so by cutting his wrist or jumping in front of a car. He also states that he has thoughts of hurting others. He states this would be anybody. But he tries to control this thought. Patient is thought blocking on exam. Patient to the main ER for [facility] evrodo. 1013 Initial orders include: medical clearance orders.
[2018-10-13 13:35] LABS: Bilirubin,Urine NEG (Negative); Blood,Urine NEG (Negative); Color,Urine Colorless (Yellow); Protein,Urine <15 mg/dL mg/dL (Negative); Urobilinogen,Urine < 2.0 mg/dL (<2.0); WBC,Urine < 1.0 /HPF (0.0-6.0)
[2018-10-13 13:44] LABS: Amphetamine Screen,Urine PRESUMPTIVE NEGATIVE; Benzodiazepines Screen,Urine PRESUMPTIVE NEGATIVE; Cannabinoid Screen,Urine PRESUMPTIVE NEGATIVE; Cocaine Screen,Urine PRESUMPTIVE NEGATIVE; Methadone Screen,Urine PRESUMPTIVE NEGATIVE; Opiate Screen,Urine PRESUMPTIVE NEGATIVE
[2018-10-13 14:45] LABS: Hematocrit 34.5 % (35.5-45.6); Hemoglobin 11.1 gm/dl (11.8-15.2); Mean Corpuscular Volume 84 fl (84-94); Red Blood Count 4.13 M/mm3 (3.65-5.03)
[2018-10-13 14:46] LABS: Mean Corpuscular HGB Conc 32 % (32-34); Platelet Count 148 K/mm3 (140-440); Red Cell Distribution Width 16.4 % (13.2-15.2)
[2018-10-13 14:52] LABS: Alanine Aminotransferase 94 units/L (7-56); Albumin 1.6 g/dL (3.9-5); BUN/Creatinine Ratio 8; Blood Urea Nitrogen 4 mg/dL (9-20); Calcium 7.7 mg/dL (8.4-10.2); Hemolysis Index 60
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
[2018-10-13 15:25] LABS: Anisocytosis 1+; Basophils % (Manual) 0 % (0.0-1.8); Eosinophils % (Manual) 0 % (0.0-4.3); Macrocytosis Few; Platelet Estimate Consistent w Auto; Total Cells Counted 100
== END 2018-10-13 19:15 ==
LOC: ED 12:47 → EEVIPCON 12:47 → ED 19:15
DX: F31.81 Bipolar II disorder (principal); F20.9 Schizophrenia, unspecified; F17.200 Nicotine dependence, unspecified, uncomplicated; J45.909 Unspecified asthma, uncomplicated; F14.10 Cocaine abuse, uncomplicated; F15.10 Other stimulant abuse, uncomplicated
CPT/HCPCS: 36415; 80053; 80307; 81001; 84443; 85007; 85025; 99285; G0480; 80320

== ENCOUNTER 2020-02-23 00:17 | Emergency (ER) | payer SELFPAY ==
[2020-02-23 04:11] VITALS: BP 123/81
== END 2020-02-23 04:42 | disposition left against medical advice (07) ==
LOC: ED 00:17
DX: R11.2 Nausea with vomiting, unspecified (principal); Z53.21 Procedure and treatment not carried out due to patient leaving prior to being seen by health care provider